=== PATIENT | female | born 1965 | race Caucasian/White ===

== ENCOUNTER 2017-08-15 06:24 | Inpatient (IN) | payer MEDICARE, MEDICAID ==
[2017-07-28 10:33] LABS: ABSOLUTE BASOPHILS 0.1 thou/uL (0.0-0.2); ABSOLUTE EOSINOPHILS 0.4 thou/uL (0.0-0.7); ABSOLUTE LYMPHOCYTES 1.6 thou/uL (0.8-5.3); ABSOLUTE MONOCYTES 0.6 thou/uL (0.0-1.2); ABSOLUTE NEUTROPHILS 5.3 thou/uL (1.6-8.1); BASOPHILS 1.2 %; EOSINOPHILS 4.7 %; HEMATOCRIT 37.7 % (37.0-47.0); HEMOGLOBIN 12.3 gm/dL (12.0-15.0); LYMPHOCYTES 19.7 %; MCH 28.2 pg (26.0-34.0); MCHC 32.7 g/dL (28.0-37.0); MCV 86.2 fL (80.0-100.0); MONOCYTES 7.5 %; MPV 7.8 fl. (7.2-11.1); NUCLEATED RBCS 0 /100WBC; PLATELET COUNT* 268 thou/uL (150-400); POLYS 66.9 %; RBC 4.38 mil/uL (4.20-5.00); RDW-CV 14.9 % (10.5-14.5); WBC 7.9 thou/uL (4.0-11.0)
[2017-07-28 10:47] LABS: APTT 28.9 Seconds (25.0-31.3); PROTIME 9.7 Seconds (9.20-11.50)
[2017-07-28 10:52] LABS: ALBUMIN 3.4 g/dL (3.4-5.0); CREATININE 0.9 mg/dL (0.6-1.3); POTASSIUM 4.5 mmol/L (3.5-5.1); TOTAL BILIRUBIN 0.3 mg/dL (<0.1-1.0); TOTAL PROTEIN 7.4 g/dL (6.4-8.2)
[2017-07-28 11:30] LABS: ESR (SEDRATE) 26 mm/hr (0-30)
--- NOTE | 2017-07-28 11:30 | EKG ---
[place] [address] ELECTROCARDIOGRAM REPORT Name: TRACYFRANK Room: PRE IN [facility].#: [id number] Admission: Attend Phys: Brittany Woods Discharge: Date of : 61 Report #: [id number] THIS REPORT FOR: //name// [facility] Test Date: 2017-07-28 Test Time: 09:44:29 Pat Name: FRANK MOLINA Department: Room: Gender: F Proof Sorter: : 1965 Requested By: Luis Granados Order Number: [id number] Reading MD: Gibran Alcaraz Measurements Intervals [place] Rate: 80 P: 72 [place]: 145 QRS: 80 QRSD: 93 T: 58 QT: 383 QTc: 442 Interpretive Statements Sinus rhythm Right atrial enlargement Compared to ECG 02/05/2016 09:02:48 Atrial abnormality now present Electronically Signed On 07-28-2017 11:29:54 DOUGH MIXER by Gibran Alcaraz [email or web address] <ELECTRONICALLY SIGNED> By: Gibran Alcaraz MD, [facility] 07/28/17 1129 0944 0944 Gibran Alcaraz MD, FACC /EPI
[~2017-08-15] VITALS: Ht 152.4 cm; Wt 66.7 kg
[~2017-08-15 06:24] MED LIST: ABILIFY 2 MG2 M1 PO; ABILIFY20 MG PO; ACCUNEB SO1.25 MG/1; ADVAIR 500-501 EACH IH; ALAVERT10 MG PO; ALBUTEROL NEB; ALBUTEROL2.5 MG/0.5 IH; ALBUTEROL2.5 MG/31 IH; ASPIRIN325 PO; ATROVENT15 ML NS; AUGMENTIN 875-1 EACH PO; BENTYL20 MG PO; BUSPIRONE HCL10 MG PO; CEFTIN500 MG PO; CELEBREX50 MG; CLARITIN10 M3 PO; CLEOCIN HCL150 MG PO; COLACE100 MG PO; COZAAR 50 MG TA50 M2 PO; DARVOCET-N 1001 EACH PO; ESTRACE0.5 MG PO; FLEXERIL PO; FLONASE 0.05%50 MCG NASAL; FOLIC ACID 40400 MC1 PO; HYDROXYZINE HCL25 M1 PO; IRON325; LEXAPRO 10 MG T10 M1 PO; LEXAPRO PO; MEDROLDOSEPACK PO; MIRALAX255 GM PO; MS CONTIN 30 MG30 M1 PO; NAPROSYN500 MG PO; NEXIUM; NEXIUM20 M1 PO; NORCO 5-325 TA1 EACH PO; NUCYNTA ER150 MG PO; OXYCODONE HCL 55 MG PO; OXYCONTIN10 M1 PO; PAMELOR25 MG PO; PERCOCET 5-3251 EACH PO; PERCOCET PO; PREDNISONE 10 M10 MG PO; PRINIVIL5 MG PO; PROVENTIL IH; PROZAC20 MG PO; SAVELLA50 MG PO; SINGULAIR 10 MG10 M1 PO; SPIRIVA18 MCG INH; SPRIVA INH; SYNTHROID75 MCG PO; TOPAMAX50 MG; VENTOLIN HFA 1818 GM INH; VITAMIN D-32000 UNIT PO; XANAX XR1 MG PO; XARELTO10 MG PO; nasocort NASAL
[2017-08-15 09:02] VITALS: BP 108/59
[2017-08-15 12:19] LABS: PROTIME 9.7 Seconds (9.20-11.50)
--- NOTE | 2017-08-15 12:22 | NUR ---
ORDER RECEIVED FOR "OT EVALUATION AND TREATMENT". PLAN TO DEFER TO PHYSICAL THERAPY AT THIS TIME.
[2017-08-15 17:40] VITALS: BP 106/44
--- NOTE | 2017-08-15 17:54 | NUR ---
PT TRANSFERRED TO ROOM 110. VSS. PT ON 2L PER NC. IV SALINE LOCKED AT THIS TIME-PAGE SENT TO SURGEON TO CLARIFY ORDER FOR IVF RATE AND POST SURGICAL ANTIBIOTIC. PT REPORTS FEELING TO RIGHT LE. 2+ PEDAL PULSE BILATERALLY. FOOT PUMPS IN PLACE. ASSESSMENT COMPLETED CHARTED. CONTINUOUS PULSE OX IN PLACE. PT ORIENTED TO ROOM AND CALL LIGHT. CALL LIGHT IS WITHIN REACH. WILL CONTINUE TO [facility].
[2017-08-15 20:10] VITALS: BP 136/63
[2017-08-15 23:18] VITALS: BP 128/60
[2017-08-16 03:24] VITALS: BP 119/60
[2017-08-16 04:45] LABS: CALCIUM 8.4 mg/dL (8.5-10.1); MAGNESIUM 1.5 mg/dL (1.8-2.4); POTASSIUM 4.1 mmol/L (3.5-5.1)
[2017-08-16 04:48] LABS: PROTIME 9.7 Seconds (9.20-11.50)
[2017-08-16 04:51] LABS: HEMATOCRIT 29.7 % (37.0-47.0); HEMOGLOBIN 9.7 gm/dL (12.0-15.0); MCH 27.9 pg (26.0-34.0); MCHC 32.8 g/dL (28.0-37.0); MCV 85.1 fL (80.0-100.0); RBC 3.49 mil/uL (4.20-5.00); RDW-CV 14.9 % (10.5-14.5); WBC 19.9 thou/uL (4.0-11.0)
--- NOTE | 2017-08-16 04:59 | NUR ---
PATIENT HAS REMAINED ALERT AND ORIENTED X 4 THROUGHOUT THE SHIFT AND RESTING AT INTERVALS BUT NOT SLEEPING TONIGHT. QUESTION STEROIDS AND BREATHING TREATMENT CONTRIBUTING TO INSOMNIA. MEDICATED USING BOT ORAL AND IV PAIN MEDICATIONS. UP WITH WALKER X 1 WELL FOR LEG CRAMPS. IVF'S AND ANTIBIOTICS PER ORDERS. DRESSING RIGHT KNEE CLEAN AND DRY. NO NAUSEA. GOOD ORAL INTAKE AND URINE OUTPUT. STOREY TO BE DISCONTINUED RADHA AM. VITAL SIGNS STABLE WITH O2 AT 2L/MIN AND CONTINUOUS CAPNOGRAPHY OVERNIGHT. PATIENT WANTING TO GO HOME TODAY. CONTNUE TO MONITOR.
[2017-08-16 08:00] VITALS: BP 108/50
[2017-08-16] MEDS ORDERED: ELIQUIS2.5 MG PO (09:14)
[2017-08-16] MEDS ORDERED: LEVAQUIN 500 M500 M2 PO (09:14)
[2017-08-16] MEDS ORDERED: LIDOPATCH1 EACH TOP (09:14)
[2017-08-16] MEDS ORDERED: PREDNISONE 20 M20 MG PO (09:14)
[2017-08-16] MEDS ORDERED: DUONEB 2.5-0.5 M3 ML INH (09:14)
[2017-08-16 11:29] LABS: POTASSIUM 3.9 mmol/L (3.5-5.1)
--- NOTE | 2017-08-16 13:07 | NUR ---
I have reviewed the documentation by MAURICIO PETE from 08/16/17 to 08/16/17 and I concur with it. NARINDER GRESHAM
[2017-08-16 13:46] VITALS: BP 119/60
--- NOTE | 2017-08-16 13:51 | NUR ---
PT.TO BE DISCHARGED TODAY TO HOME. SHE WANTS TO DO OUTPT P.T.AT [facility] [place] AT [address] CALLED [phone] AND FAXED FACE SHEET,ORTHOPEDIC ORDERS AND OP REPORT TO HER AT [phone]. THEY WILL CALL HER FOR AN APPT. [phone]. COPAY IS $1.72. INFORMED PT. SHE LIVES WITH HER AND HE WILL BE WITH HER AT HOME. HE CAN DRIVE HER TO OUTPT.THERAPY. SHE HAS A WALKER AT HOME. PT.SAID SHE IS NORMALLY INDEPENDENT AT HOME WITH ALL THINGS.
[2017-08-16 14:26] VITALS: BP 119/60
[2017-08-16] MEDS ORDERED: OXYCODONE HCL 55 MG PO (14:30)
--- NOTE | 2017-08-16 14:34 | NUR ---
I have reviewed the documentation by MAURICIO PETE from 08/16/17 to 08/16/17 and I concur with it. NARINDER GRESHAM
[2017-08-16 16:40] VITALS: BP 119/60
--- NOTE | 2017-08-16 16:55 | NUR ---
PATIENT LEFT UNIT AT 1630. ALERT AND ORIENTED X4. UP WITH STAND BY ASSIST WITH WALKER AND GAIT BELT. IV DC'D. PAIN BEING MANAGED WITH PO PAIN MEDICATION. DENIES NAUSEA. ALL PERSONAL ITEMS LEFT WITH PATIENT. DISCHARGE INSTRUCTIONS, PRESCRIPTIONS, AND NEW MEDICATION INFORMATION SENT WITH PATIENT. VSS ON ROOM AIR. HOURLY ROUNDS HAVE BEEN MAINTAINED THROUGHOUT SHIFT. LEFT WITH UNRELATED ADULT VIA CAR.
[2017-08-16 18:07] LABS: GLYCOHEMOGLOBIN (HGB A1C) 5.1 % (4.8-5.6)
[2017-08-17] MEDS ORDERED: SPIRIVA (05:17)
[2017-08-17] MEDS ORDERED: OMEPRAZOLE40 MG (05:17)
--- NOTE | 2017-08-17 11:25 | S ---
[place] [address] SURGICAL PATH RPT PROCEDURE Name: JOY PIMENTEL Room: [address] IN M.R.#: [id number] Admission: 08/15/17 Date of : 61 Discharge: 08/16/17 Report #: [id number] Path Case #: [id number] PATHOLOGY REPORT COLLECTION DATE: 08/15/2017 RECEIVED DATE: 08/15/2017 SUBMITTING PHYS: Dr. Luis Granados OTHER PHYS: Dr. Yonathan Elizondo SPECIMEN(S) RECEIVED: Vaishnavi.R knee bone and tissue * * * * * * * * * * * * FINAL DIAGNOSIS: Right knee bone and tissue, patellofemoral arthroplasty: - Benign fibrofatty tissue and benign bone and cartilage with degenerative changes. (ESTEFANIA:dagmar; 08/17/2017) PATHOLOGIST: Markos Valero M.D. REPORT ELECTRONICALLY SIGNED BY: Markos Valero M.D. DATE/TIME: 08/17/2017 11:24 * * * * * * * * * * * * GROSS PATHOLOGY: The specimen is received in formalin, labeled "Joy Pimentel right knee bone and tissue". Received is a segment of pale yellow-herman bone grossly resembling a patellar fragment with scant attached soft tissue measuring 3.7 x 3.3 x 0.7 cm in greatest dimensions. The specimen displays an articular surface that is smooth and pale herman-brown in appearance, with no gross evidence of eburnation. Car Wrecker bone and soft tissue are submitted in cassette A1, following decalcification. (DAC; 08/16/2017) CLINICAL HISTORY: Right knee degenerative joint disease INITIAL CPT CODE(S): A; 28029, 74674 Professional services performed [place] [facility] [place] [address] Technical services performed by [facility] at [address] [place] [address] SURGICAL PATH RPT PROCEDURE Name: JOY PIMENTEL [employer] Room: [address] IN ..#: [id number] Admission: 08/15/17 Date of : 61 Discharge: 08/16/17 Report #: [id number] Path Case #: [id number] [place] [address]. [facility] [address] [place] [address] PHONE: [phone] DIRECTOR: Sergei Arteaga M.D. * * * END OF REPORT * * *
--- NOTE | 2017-10-12 20:21 | OP ---
[address] [address] OPERATIVE REPORT Name: FRANK MOLINA Room: [address] IN .#: [id number] Admission: 08/15/17 Attend Phys: Brittany Woods Discharge: 08/16/17 Date of : 61 Report #: [id number] THIS REPORT FOR: //name// CC: Luis Deutsch DATE OF SERVICE: 08/15/2017 PREOPERATIVE DIAGNOSIS: Patellofemoral arthritis, right knee. POSTOPERATIVE DIAGNOSIS: Patellofemoral arthritis, right knee. PROCEDURE: Right knee patellofemoral arthroplasty. SURGEON: Luis Granados DO [employer]OR[employer] SUPERVISOR: Joseph Finley DO ESTIMATED BLOOD LOSS: 50 mL. TOURNIQUET TIME: Approximately 40 minutes. ANTIBIOTICS: Ancef 1 gram IV preoperatively. COMPLICATIONS: None. DRAINS: None. SPECIMEN REMOVED: None. ANESTHESIA: Spinal with regional block. ORTHOPEDIC IMPLANTS: Loree patellofemoral arthroplasty system. 1. Size small trochlear component. 2. Size 29 three peg patella. 3. One bag of Palacos bone cement plain. CONDITION OF THE PATIENT: Stable to PACU. INDICATIONS: The patient is a pleasant 52-year-old female seen in my clinic regarding for quite some time. She unfortunately failed conservative treatment including anti-inflammatory medications, steroid injections and activity modification. MRI and x-rays were consistent with mainly patellofemoral arthralgia. This pain was interfering with activities of daily living and quality of life. I discussed potential benefit of [address] [place] [address] OPERATIVE REPORT Name: FRANK MOLINA BRIAN Room: [address] IN M.R.#: [id number] Admission: 08/15/17 Attend Phys: Brittany Woods Discharge: 08/16/17 Date of : 61 Report #: [id number] patellofemoral arthroplasty versus total knee arthroplasty based on intraoperative findings. I discussed procedure, risks, benefits, complications, indications in detail with her. Risks discussed include but not limited to infection, neurovascular injury, continued or worsened pain, continued or worsening arthritic changes, arthrofibrosis, hardware failure, fracture, DVT, PE, need for further surgery and anesthesia complications. She did express understanding and wished to proceed with surgery. DESCRIPTION OF PROCEDURE: After consent was obtained, the patient was taken to the operative suite, placed in supine position on operating table after being given the benefit of spinal anesthesia. A well-padded tourniquet placed on the right upper thigh. Right leg was sterilely prepped and draped in the usual fashion. Preop timeout was obtained to confirm the correct patient, procedure and operative site. Surgery began with elevation of the tourniquet to 300 mmHg, was inflated for approximately 40 minutes throughout the procedure. A standard anterior knee midline incision was made. Sharp dissection was taken down to the level of the capsule. A new knife was used and a medial parapatellar arthrotomy was performed. A normal appearing joint effusion was encountered. Care was taken not to damage the articular cartilage and/or the menisci. At this time, the patella was able to be easily everted and the cartilage was thoroughly inspected. She had no significant degenerative joint disease of the medial or lateral compartments. Menisci were intact. ACL and PCL were intact. She did have grade 4 changes of the trochlea and grade 3 changes of the patella. At this time, we elected to proceed with a patellofemoral arthroplasty. The opening reamer was utilized at appropriate position in the trochlea. We then placed our guide for anterior femoral cut utilizing the bone. This was pinned in place and the anterior cut was then made. We then measured her to be a size 1/small patellofemoral component. The reaming mill was then pinned in place at appropriate position. The bur was then used to mill out the trochlea for the implant carefully. The guide was then removed. We then drilled through the 3 holes for the trochlear component. The size 1 trial component was then impacted into place. The patella was then everted. Posterior patellar cut was made using freehand technique. This measured size 29. Three peg holes were drilled, size 29 button was placed. Knee was taken through a range of motion. The patella did track well. There was no significant clunking, dislocation or subluxation noted. The trial components were then removed. The knee was thoroughly irrigated with pulsatile lavage and dried with a clean lap sponge. Cement was mixed and final components were opened. Cement was placed on the exposed bone as well as final components. The trochanteric component was then impacted in place and the patellar component was clamped until the cement hardened. Once the cement hardened, knee was again taken through final range of motion. The patella tracked well without any significant clunking. The wound was again thoroughly irrigated. Tourniquet was let to deflate. Hemostasis was achieved with electrocautery and direct pressure. [place] [address] OPERATIVE REPORT Name: FRANK MOLINA Room: [address] IN [facility]#: [id number] Admission: 08/15/17 Attend Phys: Brittany Woods Discharge: 08/16/17 Date of : 61 Report #: [id number] The capsular tissue was then closed with #1 Vicryl in a [id number] fashion. PRP was injected into the capsule. Subcutaneous tissues closed with 2-0 Vicryl in an inverted interrupted fashion followed by running Monocryl stitch on the skin. This was covered with Dermabond, which was allowed to dry, Mepilex silver dressing, 4 x 4s, ABD pad, soft roll and Jose J bandage. She did tolerate the procedure well without complications. She was taken to recovery in stable condition. All needle and sponge counts correct x 2 at the end of the procedure. <ELECTRONICALLY SIGNED> By: Luis Granados DO 10/12/172020 1512 1615Davibrittany Granados DO /nt
== END 2017-08-16 16:30 | disposition home or self-care (01) | DRG 516 ==
LOC: M.PRE 06:24 → M.ORTHSURG 08:11 → M.TBA 08:11 → M.PRE 08:31 → M.ORTHSURG 17:52
PROVIDERS: Internal Medicine; Orthopaedic Surgery; ADMIT Internal Medicine
PROC: 0SUT09Z Supplement Right Knee Joint, Femoral Surface with Liner, Open Approach (ICD-10-PCS; principal; 2017-08-15)
PROC: 0SUC09C Supplement Right Knee Joint with Liner, Patellar Surface, Open Approach (ICD-10-PCS; principal; 2017-08-15)
PROC: 3E0T3BZ Introduction of Anesthetic Agent into Peripheral Nerves and Plexi, Percutaneous Approach (ICD-10-PCS; 2017-08-15)
DX: M17.11 Unilateral primary osteoarthritis, right knee (principal); J44.1 Chronic obstructive pulmonary disease with (acute) exacerbation; E87.1 Hypo-osmolality and hyponatremia; K21.9 Gastro-esophageal reflux disease without esophagitis; F17.210 Nicotine dependence, cigarettes, uncomplicated; F32.9 Major depressive disorder, single episode, unspecified; E03.9 Hypothyroidism, unspecified; I10 Essential (primary) hypertension; Z28.21 Immunization not carried out because of patient refusal; Z88.1 Allergy status to other antibiotic agents; Z88.8 Allergy status to other drugs, medicaments and biological substances; Z90.710 Acquired absence of both cervix and uterus

== ENCOUNTER 2017-08-17 05:06 | Inpatient (IN) | payer MEDICARE, MEDICAID ==
[~2017-08-17] VITALS: Ht 152.4 cm; Wt 71.2 kg
[~2017-08-17 05:06] MED LIST changes: +DUONEB 2.5-0.5 M3 ML INH; +ELIQUIS2.5 MG PO; +LEVAQUIN 500 M500 M2 PO; +LIDOPATCH1 EACH TOP; +PREDNISONE 20 M20 MG PO
[2017-08-17 05:07] VITALS: BP 137/63
[2017-08-17] MEDS ORDERED: OMEPRAZOLE40 MG (05:17)
[2017-08-17] MEDS ORDERED: SPIRIVA (05:17)
[2017-08-17 06:14] LABS: HEMATOCRIT 28.1 % (37.0-47.0); HEMOGLOBIN 9.3 gm/dL (12.0-15.0); MCH 28.1 pg (26.0-34.0); MCHC 33.2 g/dL (28.0-37.0); MCV 84.7 fL (80.0-100.0); MPV 7.4 fl. (7.2-11.1); NUCLEATED RBCS 0 /100WBC; PLATELET COUNT* 201 thou/uL (150-400); RBC 3.31 mil/uL (4.20-5.00); RDW-CV 15.3 % (10.5-14.5)
[2017-08-17 06:24] LABS: CALCIUM 8.2 mg/dL (8.5-10.1); CREATININE 0.8 mg/dL (0.6-1.3); POTASSIUM 4.1 mmol/L (3.5-5.1)
[2017-08-17 06:25] LABS: PROTIME 9.8 Seconds (9.20-11.50)
[2017-08-17 06:36] LABS: MAGNESIUM 1.5 mg/dL (1.8-2.4); TOTAL BILIRUBIN 0.4 mg/dL (<0.1-1.0); TOTAL PROTEIN 6.2 g/dL (6.4-8.2); TROPONIN-I LEVEL 0.08 ng/mL (<0.06)
[2017-08-17 06:38] LABS: ABSOLUTE LYMPHOCYTES 0.8 thou/uL (0.8-5.3); ABSOLUTE MONOCYTES 0.8 thou/uL (0.0-1.2); ABSOLUTE NEUTROPHILS 19.3 thou/uL (1.6-8.1); ANISOCYTOSIS 1+; PLATELET ESTIMATE ADEQUATE; POIKILOCYTOSIS 1+
[2017-08-17 06:40] VITALS: BP 114/54
[2017-08-17 06:45] VITALS: BP 126/72
[2017-08-17 15:04] LABS: POTASSIUM 4.2 mmol/L (3.5-5.1)
[2017-08-17 15:20] VITALS: BP 129/62
[2017-08-17 16:00] VITALS: BP 114/44
--- NOTE | 2017-08-17 18:05 | 2DMMODE ---
[place] [address] 2 D/M-MODE ECHOCARDIOGRAM Name: FRANK MOLINA Room: [place] [address] ADM IN Deann#: [id number] Admission: 08/17/17 Attend Phys: Cordell Ko, Discharge: Date of : 61 Date of Service: 08/17/17 1805 Report #: [id number] THIS REPORT FOR: //name// APPROVED REPORT Study performed: 08/17/2017 09:57:32 EXAM: Comprehensive 2D, Doppler, and color-flow Echocardiogram Patient Location: In-Patient Room #: 101 Status: routine BSA: 1.68 HR: 95 bpm BP: 126/72 mmHg Rhythm: NSR Other Information Study Quality: Good Indications COPD Elevated Troponin Post-op pain, hypoxia 2D Dimensions LVEF(%): 71.47 (>50%) IVSd: 10.62 (7-11mm) LVOT Diam: 20.01 (18-24mm) LVDd: 39.48 mm PWd: 9.79 (7-11mm) Ascending Ao: 33.06 (22-36mm) LVDs: 23.62 (25-40mm) Aortic Root: 27.14 mm Forbes's LVEF: 71.47 % Volumes Left Atrial Volume (Systole) LA ESV Index: 34.40 mL/m2 Aortic Valve AoV Peak Helder.: 1.95 m/s AO Peak Gr.: 15.17 mmHg LVOT Max P.89 mmHg AO Mean Gr.: 9.32 mmHg LVOT Mean P.71 mmHg LVOT Max V: 1.49 m/s AO V2 VTI: 40.72 cm LVOT Mean V: 1.00 m/s NICOLE (VTI): 2.48 cm2 LVOT V1 VTI: 32.15 [place] [address] 2 D/M-MODE ECHOCARDIOGRAM Name: FRANK MOLINA [facility] Room: [address] IN .R.#: [id number] Admission: 08/17/17 Attend Phys: Cordell Ko, Discharge: Date of : 61 Date of Service: 08/17/17 1805 Report #: [id number] Mitral Valve E/A Ratio: 1.00 MV Decel. Time: 164.37 ms MV E Max Helder.: 1.33 m/s MV PHT: 47.67 ms MVA (PHT): 4.62 cm2 TDI E/Lateral E': 8.31 E/Medial E': 8.31 Medial E' Helder.: 0.16 m/s Lateral E' Helder.: 0.16 m/s Pulmonary Valve PV Peak Helder.: 1.41 m/s PV Peak Gr.: 7.94 mmHg Tricuspid Valve TR Peak Gr.: 33.72 mmHg RVSP: 38.00 mmHg Left Ventricle The left ventricle is normal size. There is normal LV segmental wall motion. There is normal left ventricular wall thickness. Left ventricular systolic function is normal. The left ventricular ejection fraction is within the normal range. LVEF is 60-65%. The left ventricular diastolic function is normal. Right Ventricle The right ventricle is normal size. The right ventricular systolic function is normal. Atria The left atrium size is normal. The right atrium size is normal. Aortic Valve The aortic valve is normal in structure. No aortic regurgitation is present. There is no aortic valvular stenosis. Mitral Valve The mitral valve is normal in structure. There is no mitral valve regurgitation noted. No evidence of mitral valve stenosis. Tricuspid Valve The tricuspid valve is normal in structure. Mild tricuspid regurgitation. The RVSP is 35-40 mmHg[place] [address] 2 D/M-MODE ECHOCARDIOGRAM Name: FRANK MOLINA [facility] Room: [address] IN ..#: [id number] Admission: 08/17/17 Attend Phys: Cordell Ko, Discharge: Date of : 61 Date of Service: 08/17/17 1805 Report #: [id number] The pulmonary valve is normal in structure. Mild pulmonic regurgitation. Great Vessels The aortic root is normal in size. IVC is normal in size and collapses with >50% inspiration Pericardium There is no pericardial effusion. <Conclusion> The left ventricle is normal size. There is normal left ventricular wall thickness. Left ventricular systolic function is normal. The left ventricular ejection fraction is within the normal range. LVEF is 60-65%. The left ventricular diastolic function is normal. The right ventricle is normal size. The left atrium size is normal. The aortic valve is normal in structure. The mitral valve is normal in structure. The tricuspid valve is normal in structure. Mild tricuspid regurgitation. The RVSP is 35-40 mmHg. IVC is normal in size and collapses with >50% inspiration There is no pericardial effusion. There is normal LV segmental wall motion. <ELECTRONICALLY SIGNED> By: Ryan Olivia MD, FACC 08/17/171804 04 04 Ryan Olivia MD, FACC /INF
[2017-08-17 20:00] VITALS: BP 106/47
[2017-08-18] VITALS: BP 114/48
[2017-08-18 04:00] VITALS: BP 122/48
[2017-08-18 07:30] VITALS: BP 115/47
[2017-08-18 10:05] LABS: HEMATOCRIT 28.1 % (37.0-47.0); HEMOGLOBIN 9.2 gm/dL (12.0-15.0); MCH 28.3 pg (26.0-34.0); MCHC 32.8 g/dL (28.0-37.0); MCV 86.2 fL (80.0-100.0); MPV 7.8 fl. (7.2-11.1); RBC 3.26 mil/uL (4.20-5.00); RDW-CV 15.2 % (10.5-14.5); WBC 16.9 thou/uL (4.0-11.0)
[2017-08-18 10:12] LABS: CALCIUM 8.1 mg/dL (8.5-10.1); CREATININE 0.8 mg/dL (0.6-1.3); POTASSIUM 4.4 mmol/L (3.5-5.1)
[2017-08-18 11:34] VITALS: BP 118/57
--- NOTE | 2017-08-18 12:39 | EKG ---
[place] [address] ELECTROCARDIOGRAM REPORT Name: TRACYFRANK BRIAN Room: [place] [address] ADM IN [facility].#: [id number] Admission: 08/17/17 Attend Phys: Cordell Ko MD Discharge: Date of : 61 Report #: [id number] THIS REPORT FOR: //name// [facility] ED Test Date: 2017-08-17 Test Time: 06:03:15 Pat Name: FRANK MOLINA Department: Room: [facility] Gender: F System Dispatcher: DEE Brush : 1965 Requested By: Juanito Perez Order Number: [id number] MD: Francisco J Daniels Measurements Intervals [place] Rate: 88 P: 58 TN: 158 QRS: 61 QRSD: 92 T: 26 QT: 358 QTc: 434 Interpretive Statements Sinus rhythm Probable left atrial enlargement Baseline wander in lead(s) I,aVR Compared to ECG 07/28/2017 09:44:29 No significant changes Electronically Signed On 08-18-2017 12:39:25 MENTAL HEALTH SOCIAL WORKER by Francisco J Daniesl [email or web address] <ELECTRONICALLY SIGNED> By: Francisco J Daniels MD, FACC 08/18/17 1239 0603 0603 Francisco J Daniels MD, FAC /EPI
[2017-08-18 15:55] VITALS: BP 138/49
[2017-08-18 20:35] VITALS: BP 123/59
[2017-08-19 08:15] VITALS: BP 123/59
[2017-08-19] MEDS ORDERED: AZITHROMYCIN 2250 MG PO (08:51)
[2017-08-19] MEDS ORDERED: CEFDINIR300 MG PO (08:51)
[2017-08-19 12:05] VITALS: BP 123/59
[2017-08-19 12:06] VITALS: BP 123/59
[2017-08-19 15:53] VITALS: BP 123/59
[2017-08-20] MEDS ORDERED: NAPROSYN500 MG PO (22:45)
[2017-08-20] MEDS ORDERED: MORPHINE SULFAT15 M3 PO (22:46)
== END 2017-08-19 16:30 | disposition home health service (06) | DRG 177 ==
LOC: M.ERS 05:06 → M.ORTHSURG 06:04 → M.TBA-ER 06:04 → M.ORTHSURG 06:49 → M.2W 12:32 → M.ORTHSURG 08-18 19:59
PROVIDERS: Family Medicine; Internal Medicine; ADMIT Internal Medicine
PROC: B24BZZ4 Ultrasonography of Heart with Aorta, Transesophageal (ICD-10-PCS; principal; 2017-08-17)
DX: J15.6 Pneumonia due to other Gram-negative bacteria (principal); J96.00 Acute respiratory failure, unspecified whether with hypoxia or hypercapnia; J44.1 Chronic obstructive pulmonary disease with (acute) exacerbation; J44.0 Chronic obstructive pulmonary disease with (acute) lower respiratory infection; E87.1 Hypo-osmolality and hyponatremia; G89.18 Other acute postprocedural pain; I10 Essential (primary) hypertension; K58.9 Irritable bowel syndrome, unspecified; M19.90 Unspecified osteoarthritis, unspecified site; M79.7 Fibromyalgia; K21.9 Gastro-esophageal reflux disease without esophagitis; D64.9 Anemia, unspecified; F17.210 Nicotine dependence, cigarettes, uncomplicated; Z96.651 Presence of right artificial knee joint; D72.829 Elevated white blood cell count, unspecified; T38.0X5A Adverse effect of glucocorticoids and synthetic analogues, initial encounter; Y92.89 Other specified places as the place of occurrence of the external cause; Z87.81 Personal history of (healed) traumatic fracture; Z90.710 Acquired absence of both cervix and uterus; Z79.51 Long term (current) use of inhaled steroids; Z79.899 Other long term (current) drug therapy; Z88.1 Allergy status to other antibiotic agents; Z88.2 Allergy status to sulfonamides; Z88.8 Allergy status to other drugs, medicaments and biological substances

== ENCOUNTER 2017-08-20 13:02 | Inpatient (IN) | payer MEDICARE, MEDICAID ==
[~2017-08-20] VITALS: Ht 152.4 cm; Wt 71.2 kg
[~2017-08-20 13:02] MED LIST changes: +AZITHROMYCIN 2250 MG PO; +CEFDINIR300 MG PO; +OMEPRAZOLE40 MG; +SPIRIVA
[2017-08-20 13:07] VITALS: BP 150/62
[2017-08-20 13:50] LABS: HEMATOCRIT 28.4 % (37.0-47.0); HEMOGLOBIN 9.4 gm/dL (12.0-15.0); MCH 28.2 pg (26.0-34.0); MCHC 33.2 g/dL (28.0-37.0); MCV 84.9 fL (80.0-100.0); MPV 7.2 fl. (7.2-11.1); NUCLEATED RBCS 0 /100WBC; PLATELET COUNT* 240 thou/uL (150-400); RBC 3.34 mil/uL (4.20-5.00); RDW-CV 15.4 % (10.5-14.5); WBC 12.2 thou/uL (4.0-11.0)
[2017-08-20 14:14] LABS: ABSOLUTE LYMPHOCYTES 2.1 thou/uL (0.8-5.3); ABSOLUTE MONOCYTES 0.7 thou/uL (0.0-1.2); ABSOLUTE NEUTROPHILS 9.4 thou/uL (1.6-8.1); ANISOCYTOSIS Occasional; HYPOCHROMASIA Occasional; PLATELET ESTIMATE ADEQUATE; POLYCHROMASIA Occasional
[2017-08-20 14:16] LABS: ALBUMIN 2.8 g/dL (3.4-5.0); ALKALINE PHOSPHATASE 84 U/L (46-116); ANION GAP 5 mmol/L (7-16); BUN 16 mg/dL (7-18); CALCIUM 8.5 mg/dL (8.5-10.1); CHLORIDE 100 mmol/L (98-107); CO2 31 mmol/L (21-32); CREATININE 0.9 mg/dL (0.6-1.3); GLUCOSE 81 mg/dL (70-99); NT-PRO BRAIN NAT PEPTIDE 2887 pg/mL (<300); POTASSIUM 3.2 mmol/L (3.5-5.1); SGOT 23 U/L (15-37); SGPT 22 U/L (30-65); SODIUM 136 mmol/L (136-145); TOTAL BILIRUBIN 0.7 mg/dL (<0.1-1.0); TOTAL PROTEIN 6.2 g/dL (6.4-8.2); TROPONIN-I LEVEL <0.06 ng/mL (<0.06)
[2017-08-20 20:15] VITALS: BP 165/76
[2017-08-20 20:30] VITALS: BP 145/56
[2017-08-20] MEDS ORDERED: NAPROSYN500 MG PO (22:45)
[2017-08-20] MEDS ORDERED: MORPHINE SULFAT15 M3 PO (22:46)
[2017-08-21] VITALS (7 sets, daily range): BP systolic 114–148; BP diastolic 50–65
[2017-08-21 05:14] LABS: HEMATOCRIT 28.4 % (37.0-47.0); HEMOGLOBIN 9.8 gm/dL (12.0-15.0); MCHC 34.6 g/dL (28.0-37.0); MCV 83.9 fL (80.0-100.0); MPV 7.6 fl. (7.2-11.1); RBC 3.39 mil/uL (4.20-5.00); RDW-CV 15.1 % (10.5-14.5); WBC 8.4 thou/uL (4.0-11.0)
[2017-08-21 06:14] LABS: ALBUMIN 2.4 g/dL (3.4-5.0); CALCIUM 7.7 mg/dL (8.5-10.1); MAGNESIUM 1.7 mg/dL (1.8-2.4); POTASSIUM 3.7 mmol/L (3.5-5.1); TOTAL BILIRUBIN 0.6 mg/dL (<0.1-1.0); TOTAL PROTEIN 5.2 g/dL (6.4-8.2)
--- NOTE | 2017-08-21 12:23 | EKG ---
[place] [address] ELECTROCARDIOGRAM REPORT Name: TRACYFRANK BRIAN Room: [address] ADM IN .R.#: [id number] Admission: 08/20/17 Attend Phys: Brittany Woods Discharge: Date of : 61 Report #: [id number] THIS REPORT FOR: //name// [facility] ED Test Date: 2017-08-20 Test Time: 13:07:38 Pat Name: FRANK MOLINA Department: Room: [address] Gender: F Subway Train Operator: [place] : 1965 Requested By: Chari Hsu Order Number: [id number] Arben MD: Francisco J Daniels Measurements Intervals [place] Rate: 88 P: 57 ND: 145 QRS: 62 QRSD: 92 T: 53 QT: 338 QTc: 409 Interpretive Statements Sinus rhythm Biatrial enlargement possible Compared to ECG 08/17/2017 06:03:15 No significant changes Electronically Signed On 08-21-2017 12:22:58 [employer]ERWEAR WELTER by Francisco J Daniels [email or web address] <ELECTRONICALLY SIGNED> By: Francisco J Daniels MD, [facility] 08/21/17 1222 1307 1307 Francisco J Daniels MD, FACC /EPI
[2017-08-21 16:06] LABS: CALCIUM 7.7 mg/dL (8.5-10.1); CREATININE 1.2 mg/dL (0.6-1.3); MAGNESIUM 1.6 mg/dL (1.8-2.4); POTASSIUM 3.9 mmol/L (3.5-5.1)
[2017-08-22 03:51] VITALS: BP 147/60
[2017-08-22 05:24] LABS: HEMATOCRIT 28.4 % (37.0-47.0); HEMOGLOBIN 9.5 gm/dL (12.0-15.0); MCH 28.2 pg (26.0-34.0); MCHC 33.5 g/dL (28.0-37.0); MCV 84.2 fL (80.0-100.0); MPV 7.6 fl. (7.2-11.1); NUCLEATED RBCS 0 /100WBC; PLATELET COUNT* 228 thou/uL (150-400); RBC 3.38 mil/uL (4.20-5.00); RDW-CV 14.8 % (10.5-14.5); WBC 14.5 thou/uL (4.0-11.0)
[2017-08-22 05:44] LABS: ALBUMIN 2.4 g/dL (3.4-5.0); CALCIUM 7.8 mg/dL (8.5-10.1); CREATININE 0.9 mg/dL (0.6-1.3); MAGNESIUM 1.8 mg/dL (1.8-2.4); POTASSIUM 3.8 mmol/L (3.5-5.1); TOTAL BILIRUBIN 0.4 mg/dL (<0.1-1.0)
[2017-08-22 06:12] LABS: ABSOLUTE LYMPHOCYTES 1.2 thou/uL (0.8-5.3); ABSOLUTE NEUTROPHILS 13.3 thou/uL (1.6-8.1)
[2017-08-22 06:13] LABS: OVALOCYTES Occasional; PLATELET ESTIMATE ADEQUATE
[2017-08-22 06:14] LABS: ANISOCYTOSIS 1+; POIKILOCYTOSIS 1+
[2017-08-22 07:50] VITALS: BP 153/75
--- NOTE | 2017-08-22 11:43 | CON ---
[address] [address] CONSULTATION Name: TRACYFRANK BRIAN Room: [address] IN M.R.#: [id number] Admission: 08/20/17 Attend Phys: Brittany Woods Discharge: Date of : 61 Report #: [id number] THIS REPORT FOR: //name// CC: Kevin Deutsch DATE OF SERVICE: 08/21/2017 CONSULT REQUESTED BY: Dr. Soriano. INDICATION FOR CONSULTATION: Hospital-acquired pneumonia. HISTORY OF PRESENT ILLNESS: A 52-year-old female with clinical history consistent with COPD, not previously diagnosed, recent knee surgery, recent admission subsequently with pneumonia, just discharged 2 days ago, now presents again with increasing shortness of breath and cough, has had hemoptysis, has had a fever and some nasal discharge, some chest pain with respiration and coughing. No increase in swelling of lower extremities, no calf pain. REVIEW OF SYSTEMS: Negative except as mentioned above for 12 points. PAST MEDICAL HISTORY: Chronic pain, on narcotics, COPD, recent knee surgery as mentioned above, osteoarthritis. The patient's last available echocardiogram shows a normal left ventricular ejection fraction and a pulmonary artery systolic of 35-40. ALLERGIES: QUESTIONABLE ALLERGY TO TYLENOL, ALSO ALLERGIC TO BACTRIM AND TETRACYCLINE. CURRENT MEDICATIONS: List in [employer] reviewed. HOME MEDICATIONS: List also in [employer] reviewed. PHYSICAL EXAMINATION: GENERAL: Alert, awake and oriented, not in distress. Vitals in the records reviewed. The patient currently is noted to be on room air. THROAT: No erythema. NECK: Does not show raised JVP. CHEST: Breath sounds bilaterally equal, expirations prolonged, significant wheezing bilaterally. HEART: Regular, no murmur. ABDOMEN: Soft and nontender. EXTREMITIES: Lower extremities, no edema, no calf tenderness. CT of chest shows extensive pulmonary infiltrates. No pulmonary emboli detected, although limited study for pulmonary emboli. Comparing chest x-rays, [place] [address] CONSULTATION Name: FRNAK MOLINA BRIAN Room: [address] IN [facility].#: [id number] Admission: 08/20/17 Attend Phys: Brittany Woods Discharge: Date of : 61 Report #: [id number] these infiltrates are new compared with July of this year. Last chest x-ray done on the does not show these infiltrates. ASSESSMENT AND PLAN: 1. Healthcare-associated pneumonia. The patient currently is on Levaquin as well as vancomycin. I agree with current therapy. We will plan to continue Levaquin for at least 1 week. We will review vancomycin daily. For now, I do recommend continuing vancomycin as well. If the patient's condition deteriorates or fails to improve, will have a low threshold of adding Zosyn. 2. Chronic obstructive pulmonary disease exacerbation/bronchospasm. Discussion as above. She is on prednisone. I agree with prednisone. We will give her 2 doses of Solu-Medrol as well. She is on nebulized bronchodilators. 3. Recent knee surgery. Discussion as above. 4. Anticoagulation. Note that the patient currently is on anticoagulation with Eliquis. The reason why she is on Eliquis is not known to me at this time. <ELECTRONICALLY SIGNED> By: Cortez Wells MD 08/22/17 1143 1119 1752Acharlene Wells MD /nt
[2017-08-22 12:02] VITALS: BP 110/96
[2017-08-22 17:12] VITALS: BP 137/54
== END 2017-08-22 18:02 | disposition home health service (06) | DRG 871 ==
LOC: M.ERS 13:02 → M.TBA-ER 16:05 → M.2W 16:05
PROVIDERS: Family Medicine; Internal Medicine Critical Care Medicine; Physician Assistant; ADMIT Internal Medicine
DX: A41.9 Sepsis, unspecified organism (principal); J15.7 Pneumonia due to Mycoplasma pneumoniae; J96.91 Respiratory failure, unspecified with hypoxia; J44.0 Chronic obstructive pulmonary disease with (acute) lower respiratory infection; J44.1 Chronic obstructive pulmonary disease with (acute) exacerbation; Y95 Nosocomial condition; E87.6 Hypokalemia; M17.9 Osteoarthritis of knee, unspecified; Z96.651 Presence of right artificial knee joint; K58.9 Irritable bowel syndrome, unspecified; Z53.21 Procedure and treatment not carried out due to patient leaving prior to being seen by health care provider; I10 Essential (primary) hypertension; K21.9 Gastro-esophageal reflux disease without esophagitis; F17.210 Nicotine dependence, cigarettes, uncomplicated; Z90.710 Acquired absence of both cervix and uterus; Z86.19 Personal history of other infectious and parasitic diseases; Z79.2 Long term (current) use of antibiotics; Z79.899 Other long term (current) drug therapy; Z88.1 Allergy status to other antibiotic agents; Z88.8 Allergy status to other drugs, medicaments and biological substances; Z72.89 Other problems related to lifestyle; Z79.01 Long term (current) use of anticoagulants

== ENCOUNTER 2017-08-23 01:04 | Inpatient (IN) | payer MEDICARE, MEDICAID ==
[~2017-08-23] VITALS: Ht 162.6 cm; Wt 65.1 kg
[~2017-08-23 01:04] MED LIST changes: +MORPHINE SULFAT15 M3 PO
[2017-08-23 01:17] VITALS: BP 109/74
[2017-08-23 01:53] LABS: HEMATOCRIT 27.3 % (37.0-47.0); MCH 27.9 pg (26.0-34.0); MCV 84.6 fL (80.0-100.0); MPV 7.4 fl. (7.2-11.1); NUCLEATED RBCS 0 /100WBC; PLATELET COUNT* 268 thou/uL (150-400); RBC 3.22 mil/uL (4.20-5.00); RDW-CV 14.7 % (10.5-14.5); WBC 25.8 thou/uL (4.0-11.0)
[2017-08-23 01:55] LABS: CALCIUM 7.9 mg/dL (8.5-10.1); CREATININE 0.9 mg/dL (0.6-1.3); POTASSIUM 3.7 mmol/L (3.5-5.1)
[2017-08-23 02:45] VITALS: BP 109/74
[2017-08-23 03:06] LABS: ABSOLUTE NEUTROPHILS 23.7 thou/uL (1.6-8.1); ANISOCYTOSIS 1+; LARGE PLATELETS OCCASIONAL; PLATELET ESTIMATE ADEQUATE
[2017-08-23 03:24] VITALS: BP 125/57
--- NOTE | 2017-08-23 06:25 | NUR ---
PT ADMITTED WITH HYOXIA AND LEUKOCYTOSIS. PT LEFT AMA ON 08/22 WITH PNEUMONIA. PT SAME INTO ER WITH SATS IN THE LOW 80'S ON ROOM AIR. PT IS ON 4L PER NC WITH 96% SAT. PT IS ALERT AND ORIENTED. PT REPORTS PAIN IN RIGHT KNEE FROM POST OP KNEE ARTHROPLASTY 08/15/17 AND PAIN IN LOWER BACK AND HIPS. PT GIVEN ONE TIME ORDER OF DILAUDID AND NEW ORDER OF OXY IR THIS MORNING. PT HAS BEEN AFEBRILE SINCE ADMISSION TO THE FLOOR. PATIENT HAS LOOSE PROD COUGH. PT IS FALL RISK, BED ALARM ON. PT TURNS SELF IN BED. PT IS UP STANDBY ASSIST TO BATHROOM. SEE ASSESSMENT AND VITALS FOR OTHER DETAILS. CALL LIGHT WITHIN REACH, WILL CONTINUE PLAN OF CARE
[2017-08-23 08:00] VITALS: BP 131/40
--- NOTE | 2017-08-23 16:41 | NUR ---
SW met with pt to complete initial assessment, introduce self, and SW role. Pt was sleeping but woke up to say hello to SW. Pt familiar with the hospital and case management due to previous hospital stays not long ago. Pt did not express any needs at this time. SW to continue to follow to assist with safe dc planning. Pt has history with [facility] home care and with [facility] HH services. Pt was on hospice care with [facility].
[2017-08-23 17:19] VITALS: BP 142/47
--- NOTE | 2017-08-23 18:20 | NUR ---
PATIENT HAS BEEN ASLEEP MOST OF THE DAY IN THE CHAIR. VITAL SIGNS STABLE ON 6 LITERS OF OXYGEN, PATIENT SOMETIMES WILL TAKE IT OFF AND CANNULA AND OXYGEN LEVELS DROP QUICKLY. UP WITH STAND BY AND WALKER TO THE RESTROOM. CALL LIGHT IS IN REACH, WILL CONTINUE TO MONITOR.
[2017-08-23 20:00] VITALS: BP 123/55
--- NOTE | 2017-08-24 05:14 | NUR ---
ASSUMED CARE OF PT AT 1900 PT ALERT AND ORIENTED X4 VS AND ASSESSMENT STABLE. PT QUESTIONED ME WHEN I ENTERED ABOUT WHETHER OR NOT SHE HAD RECIEVED HER MEDICATIONS DURING THE DAY. I INFORMED PT ID HAVE TO CHECK BUT I WOULD GO THROUGH THEM WITH HER WHEN I CAME BACK TO TO BRING EVENING MEDS.PT AGREED. RETURNED WITH MEDS AND INFORMED PT OF ALL THE MEDS SHE HAD BEEN GIVEN DURING THE DAY PT SATISFIED. GAVE PT PRN OXYCODONE THEN PT CALLED OUT 30 MINS AFTER AND SAID THEY DIDNT HELP HER PAIN, INFORMED PT I WOULD CALL THE DOCTOR, OBTAINED ORDERS FOR PRN TRAMADOL BROUGHT IT IN WITH [employer] " IT DOESNT WORK I HAVE THOSE AT HOME BUT ILL TRY IT" PT THEN SLEPT UNTIL HER NEBULIZER TX AND CALLED OUT FOR MORE PAIN MEDS GAVE PRN NAPROXEN PT THEN SLEPT UNTIL 0245 AND CALLED OUT FOR SOMETHING FOR SLEEP. I ENTERED PTS ROOM AND PT WAS SLEEPING, ME ENTERING WOKE HER UP I EXPLAINED THAT SHE DIDNT HAVE ANYTHING ORDERED AND SINCE SHE WAS STARTING TO FALL ASLEEP WE SHOULD TRY A WARM BLANKET TURNING OUT THE TV AND THE LIGHTS AND SEE IF THAT HELPED. PT AGREED NO FURTHER COMPLAINTS. WILL CONTINUE PLAN OF CARE.
[2017-08-24 07:50] VITALS: BP 148/64
--- NOTE | 2017-08-24 15:32 | NUR ---
PATIENT ATTEMPTING TO WORK WITH PHYSICAL THERAPY THIS AFTERNOON AND PATIENT DESATTED TO THE 70s ON O2 AT 7L/NC. PATIENT INSTRUCTED TO NOT GET UP OUT OF BED UNLESS WITH STAFF. RESPIRATORY IN ROOM TO GIVE BREATHING TREATMENT, AND RESPIRATORY INCREASED O2 TO 8L/NC HIGH FLOW. PATIENT EDUCATED AND INSTRUCTED ON USE OF INCENTIVE SPIROMETRY. PATIENT VERBALIZED UNDERSTANDING. WILL CONTINUE WITH PLAN OF CARE.
[2017-08-24 16:03] VITALS: BP 133/49
--- NOTE | 2017-08-24 16:13 | NUR ---
SPOKE WITH DR CUEVAS REGARDING LOWER O2 SATS ON 8L/HIGH DELVIS NASAL CANNULA. ORDERS RECEIVED FOR ABGs. WILL CONTINUE WITH PLAN OF CARE.
[2017-08-24 16:46] LABS: PCO2 39.1 mmHg (35.0-45.0); pH 7.437 (7.340-7.450)
[2017-08-24 16:51] LABS: BE 1.5 mmol/L (-2 to +3); HCO3 25.8 mmol/L (22.0-26.0); PO2 51.2 mmHg (75.0-100.0)
--- NOTE | 2017-08-24 17:46 | NUR ---
PATIENT A/O X 4 THIS SHIFT, DROWSY AT TIMES. PATIENT'S O2 NEEDS INCREASED THROUGHOUT THE SHIFT, NOW ON O2 AT 9L/HIGH DELVIS CANNULA. ABGs COMPLETED THIS SHIFT AND RESULTS GIVEN TO DR CUEVAS. PATIENT DOES DESAT WITH ACTIVITY. CONTINUES ON ORAL PAIN MEDS. ATTEMPTED TO WORK WITH PHYSICAL THERAPY BUT DIDN'T WALK THIS SHIFT DUE TO LOW O2 SATS. PATIENT INFORMED OF ALL THE NEW ORDERS AND PLAN OF CARE. HOURLY ROUNDING COMPLETED. CALL LIGHT WITHIN REACH. WILL CONTINUE WITH PLAN OF CARE.
[2017-08-24 20:00] VITALS: BP 136/51
[2017-08-24 22:34] VITALS: BP 135/50
[2017-08-25] VITALS (10 sets, daily range): BP systolic 124–166; BP diastolic 49–85
[2017-08-25 00:57] LABS: ABSOLUTE BASOPHILS 0.1 thou/uL (0.0-0.2); ABSOLUTE LYMPHOCYTES 0.7 thou/uL (0.8-5.3); ABSOLUTE MONOCYTES 0.7 thou/uL (0.0-1.2); ABSOLUTE NEUTROPHILS 19.3 thou/uL (1.6-8.1); BASOPHILS 0.6 %; HEMATOCRIT 26.1 % (37.0-47.0); HEMOGLOBIN 8.5 gm/dL (12.0-15.0); LYMPHOCYTES 3.6 %; MCH 27.7 pg (26.0-34.0); MCHC 32.8 g/dL (28.0-37.0); MCV 84.4 fL (80.0-100.0); MONOCYTES 3.5 %; MPV 7.1 fl. (7.2-11.1); NUCLEATED RBCS 0 /100WBC; PLATELET COUNT* 251 thou/uL (150-400); POLYS 92.3 %; RBC 3.09 mil/uL (4.20-5.00); RDW-CV 14.9 % (10.5-14.5); WBC 20.9 thou/uL (4.0-11.0)
--- NOTE | 2017-08-25 04:46 | NUR ---
PT TRANSFERED TO ICU ROOM 7 AT 0420. PT ON BIPAP 14/8 RATE 12 AT 70% FIO2. PT ANXIOUS. ABG OBTAINED PER RESPIRATORY THERAPY.
--- NOTE | 2017-08-25 04:47 | NUR ---
ASSUMED CARE OF PT AT 1900 PT ALERT AND ORIENTED ON 10L NC SATS DROPING INTO THE 70'S-80'S RT IN WITH PT PLACED ON NRB PT CAME UP TO THE MID 90'S.NOTIFIED DR CUEVAS AND OBTAINED ORDER FOR PRN BIPAP PT HAD PRN PAIN MEDS AT THIS TIME. PTS DAUGHTER BROUGHT FOOD INRIGHT BEFORE MIDNIGHT AND PT REMOVED HER MASK AND BEGAN TO EAT. RT IN WITH PT AND HER O2 SATS DROPPED AGAIN.PLACED PT ON BIPAP AND NOTIFIED DR CUEVAS D. DIMER ORDERED WITH A CTA IF D DIMER IS ELEVATED. STAT D DIMER ELEVATED CTA COMPLETED. CTA SHOWED LUNG WORSENING, SEE REPORT. NOTIFIED DR CUEVAS PT TRANSFERED TO ICU, PULMONARY CONSULT AND CHANGES TO ABX THERAPT, REPORT GIVEN TO GALI. SPOKE TO PTS DAUGHTER TO INFORM HER OF THE CHANGES. WILL CONTINUE PLAN OF CARE.
[2017-08-25 04:52] LABS: BE 1.2 mmol/L (-2 to +3); HCO3 24.9 mmol/L (22.0-26.0); PCO2 36.2 mmHg (35.0-45.0); pH 7.456 (7.340-7.450)
[2017-08-25 04:53] LABS: PO2 58.3 mmHg (75.0-100.0)
--- NOTE | 2017-08-25 09:30 | NUR ---
PT TAKEN OFF BIPAP AND PLACED ON O2@15 L HFNC. SATS DECREASE TO UPPER 70S WHEN PT TALKS. ENCOURAGED PT TO TAKE SMALL BITES AND NOT TALK ON PHONE WHILE EATING. WILL CONTINUE TO MONITOR
--- NOTE | 2017-08-25 10:55 | NUR ---
PT TRANSFERRED TO ICU, ON BIPAP OVERNIGHT. NOW ON 02 PER NASAL CANNULA. PT SAID SHE IS FEELING MUCH BETTER TODAY. PT'S IS ON SERVICE WITH [facility]. SHE SAID HE IS CURRENTLY STAYING AT THEIR DTR'S HOME. SHE STATES THAT [facility] HAS BEEN VERY HELPFUL TO PROVIDE EXTRA ASSISTANCE AND VOLUNTEERS, WHILE SHE HAS BEEN IN AND OUT OF THE HOSPITAL.
[2017-08-25 12:29] LABS: ALBUMIN 2.5 g/dL (3.4-5.0); CREATININE 0.9 mg/dL (0.6-1.3); MAGNESIUM 2.1 mg/dL (1.8-2.4); POTASSIUM 3.6 mmol/L (3.5-5.1); TOTAL BILIRUBIN 0.4 mg/dL (<0.1-1.0); TOTAL PROTEIN 5.9 g/dL (6.4-8.2)
--- NOTE | 2017-08-25 14:07 | NUR ---
PT SATS DECREASE TO UPPERS 70S WITH TALKING OR EATING. PT CONTINUES TO TALK ON CELL PHONE DESPITE BEING INSTRUCTED BY STAFF MULTIPLE TIMES TO CONSERVE ENERGY. PT SATS RECOVER SLOWLY WITH INACTIVITY. PT PLACED BACK ON BIPAP AFTER LUNCH AND ENCOURAGED TO REST
--- NOTE | 2017-08-25 16:00 | NUR ---
PT ON BIPAP FOR APPROX 3 HOURS. PT TOLERATED WELL BUT HAS TO BE ENCOURAGED NOT TO TRY TO TALK ON THE PHONE WHILE ON BIPAP. SATS IN MID 90S WHILE ON BIPAP
--- NOTE | 2017-08-25 18:29 | NUR ---
PT RESTING IN BED THROUGOUT SHIFT. PT REPOSITIONED FREQUENTLY HER O2 SATS WILL TOLERATE. PT SATS DECREASE WITH ACTIVITY OR TALKING. PT TALKING ON PHONE FREQUENTLY AND HAS BEEN ENCOURAGED MULTIPLE TIMES TO NOT TALK ON PHONE. PT TOLERATING PO WELL. VOID PER [facility]. FAMILY AT BS AND UPDATED ON PLAN OF CARE
--- NOTE | 2017-08-25 22:00 | NUR ---
WENT TO TURN PT AND SHE STATED THAT SHE DOESN'T NEED US TO TURN HER. SHE TURNS HERSELF. PT EDUCATED ON WHY SHE NEEDS TO TURN FOR PREVENTION OF PRESSURE ULCERS AND ALSO HELP WITH LUNG CAPACITY.
--- NOTE | 2017-08-25 22:30 | NUR ---
PT C/O HAVING MIDSTERNAL PAIN. PT STATES THAT IT FEELS LIKE PRESSURE. DID EKG AND IT WAS NORMAL. RT DID PUT THE BI-PAP ON 30 MIN PRIOR TO THE PRESSURE STARTING. WILL CON'T TO MONITOR PT AT THIS TIME.
--- NOTE | 2017-08-25 23:30 | NUR ---
PT STATES THAT THE MIDSTERNALPRESSURE IS GONE AT THIS TIME.
[2017-08-26] VITALS (14 sets, daily range): BP systolic 123–166; BP diastolic 49–71
--- NOTE | 2017-08-26 05:08 | NUR ---
MINIMAL PROGRESSION TOWARDS GOALS. ASSESSMENT AND VS OBTAINED, SEE CHARTING. STORE TEAM LEADER ON AND TRACING SR. PT WORE THE BI PAP THROUGH OUT THE NIGHT ON ORDERED SETTINGS. 0400, PT WANTED TO WEAR THE NC. HFNC 15L WAS PLACED. THE REST OFF THE NIGHT WAS UNEVENTFUL.
[2017-08-26 05:18] LABS: HEMATOCRIT 26.9 % (37.0-47.0); HEMOGLOBIN 8.8 gm/dL (12.0-15.0); MCH 27.4 pg (26.0-34.0); MCHC 32.5 g/dL (28.0-37.0); MCV 84.3 fL (80.0-100.0); MPV 7.5 fl. (7.2-11.1); RBC 3.19 mil/uL (4.20-5.00); RDW-CV 15.2 % (10.5-14.5); WBC 21.8 thou/uL (4.0-11.0)
[2017-08-26 05:26] LABS: ALBUMIN 2.4 g/dL (3.4-5.0); CALCIUM 7.9 mg/dL (8.5-10.1); CREATININE 0.8 mg/dL (0.6-1.3); MAGNESIUM 1.9 mg/dL (1.8-2.4); POTASSIUM 4.1 mmol/L (3.5-5.1); TOTAL BILIRUBIN 0.5 mg/dL (<0.1-1.0); TOTAL PROTEIN 5.8 g/dL (6.4-8.2)
--- NOTE | 2017-08-26 07:30 | NUR ---
0730 ASSUMED CARE OF PT. PLEASE SEE DOCUMENTED ASSESSMENT. PT ON 15 L HIFLO NC W/SATS AT 89%. OFF BIPAP SINCE AROUND 0430. ASKING FOR SOME PAIN MEDICATION FOR BREAKTHROUGH PAIN-UNLIKEY D/T RESPIRATORY STATUS. WILL ALERT HIMS. GOALS THIS SHIFT ARE TO: MAINTAIN OXYGENATION SATS AT OR ABOVE 88%, PAIN MANAGEMENT, AND TO WORK W/OT/PT.
--- NOTE | 2017-08-26 07:56 | CON ---
[address] [address] CONSULTATION Name: FRANK MOLINA Room: [address] IN .R.#: [id number] Admission: 08/23/17 Attend Phys: Brittany Woods Discharge: Date of : 61 Report #: [id number] THIS REPORT FOR: //name// CC: Kevin Deutsch DATE OF SERVICE: 08/25/2017 INFECTIOUS DISEASE CONSULTATION ATTENDING PHYSICIAN: Yonathan Deutsch DO REASON FOR EVALUATION: Severe pneumonitis, actually has worsened since admission in spite of aggressive approach and antimicrobial therapy. HISTORY OF PRESENT ILLNESS: Chart reviewed, patient examined. This is a 52-year-old woman with significant medical history given her age including COPD O2 requiring who was admitted now for the third or fourth time in the last few weeks, was admitted on 08/17/2017, at that point had difficulty breathing, was hypoxemic, had a previous right knee surgery within that previous few days prior. She was treated for pneumonitis suggested improvement, was discharged only to have a clinical deterioration. She was then readmitted, medicines have been utilized in spite of that she actually required transition to the Intensive Care Unit, placed on BiPAP. She was not intubated. She is currently on nasal cannula oxygen at 8 liters. She is generally lucid. Denies significant abdominal related discomfort. She notes she has been anorexic, poor p.o. intake and some weight loss. Currently, she is on combination therapy with azithromycin, vancomycin and meropenem. ALLERGIES: LISTED TO TYLENOL, TETRACYCLINE AND BACTRIM. MEDICINES: Include meropenem, methylprednisolone, azithromycin, vancomycin, nortriptyline, montelukast, budesonide, apixaban, fluoxetine, losartan, aripiprazole, pantoprazole, buspirone, levothyroxine, ipratropium and albuterol inhaler. PAST MEDICAL HISTORY: As noted above, hypertension, history of hepatitis C, irritable bowel syndrome, fibromyalgia, hiatal hernia, degenerative joint disease, COPD, reflux, multiple orthopedic injuries requiring surgery. SOCIAL HISTORY: Continues to smoke half pack a day, numbers 40 years. No ethanol. No illicit drug use. FAMILY HISTORY: Noncontributory. REVIEW OF SYSTEMS: [place] [address] CONSULTATION Name: FRANK MOLINA BRIAN Room: [address]#: [id number] Admission: 08/23/17 Attend Phys: Brittany Woods Discharge: Date of : 61 Report #: [id number] PHYSICAL EXAMINATION: GENERAL: She appears chronically ill, undernourished. She is lucid, although she appears very weak/fatigued. VITAL SIGNS: Temperature 97.6, pulse 93, respirations 18, blood pressure 130/59. SKIN: Warm, dry. HEENT: Nasal cannula oxygen in place. NECK: Supple. LUNGS: Scattered coarse breath sounds. HEART: Regular. No appreciated murmur. ABDOMEN: Soft, nontender, mildly distended. There are no peritoneal signs. GENITOURINARY: Deferred. RECTAL: Deferred. LABORATORY DATA: Electrolytes: Sodium 139, potassium 3.6, chloride 105, bicarbonate is 27, anion gap of 7, BUN and creatinine 15 and 0.9, glucose of 200. LFTs unremarkable. Albumin of 2.5, total protein 5.9, estimated GFR of 65. CTA chest PE protocol, septal thickening and ground glass opacities, nothing for embolism, felt to be interstitial pneumonitis, can include a component of edema as well. ABGs on BiPAP earlier pH 7.456, pCO2 of 36.2, pO2 of 58.3. CBC: White count of 20.9 it has actually improved from admission when it was 28.5. Lactic acid was 2.2, repeat was 1.7. Blood cultures are sterile thus far. ASSESSMENT AND PLAN: Pneumonitis, the patient with severely compromised underlying lung function. We will continue broad spectrum empiric therapy at this point, seems unlikely able to produce sputum. Did encourage active coughing, will benefit ____ from some incentive spirometry. Continue the breathing treatments. I think we have to work at the margins, certainly there are very little reserve at this point, they could be a fairly protracted course given her illness and now fourth hospitalization. We will follow with imaging to optimize her nutritional status. <ELECTRONICALLY SIGNED> By: Ricardo Sampson MD 08/26/17 0756 1359 [id number] Sampson MD /nt
--- NOTE | 2017-08-26 08:30 | NUR ---
PT TAKEN OFF HI DELVIS NC SATS AROUND 86%, PLACED ON 50% VENTIMASK. SATS REMAINED IN THE MID 80'S. PLACED ON BIPAP BY RT. MEPELEX ADDED TO BRIDGE OF PT'S NOSE TO HELP W/PRESSURE ULCER PREVENTION. PT FRUSTRATED THAT SHE HAD TO BE PLACED BACK ON BIPAP. SUPPORT AND REASSURANCE PROVIDED.
--- NOTE | 2017-08-26 10:06 | EKG ---
[place] [address] ELECTROCARDIOGRAM REPORT Name: FRANK MOLINA BRIAN Room: [address] ADM IN .R.#: [id number] Admission: 08/23/17 Attend Phys: Brittany Woods Discharge: Date of : 61 Report #: [id number] THIS REPORT FOR: //name// [facility] Test Date: 2017-08-25 Test Time: 22:33:22 Pat Name: FRANK MOLINA Department: Room: [address] Gender: F Gallery Director: UNKNOWN : 1965 Requested By: Yonathan Deutsch Order Number: [id number] Arben MD: Luis Easton Measurements Intervals [place] Rate: 76 P: 34 WA: 141 QRS: 33 QRSD: 90 T: 24 QT: 386 QTc: 435 Interpretive Statements Sinus rhythm Probable left atrial enlargement Abnormal inferior Q waves Compared to ECG 08/20/2017 13:07:38 no change Electronically Signed On 08-26-2017 10:05:53 VIDEO RECORDER MECHANIC by Luis Easton [email or web address] <ELECTRONICALLY SIGNED> By: Luis Easton MD, [facility] 08/26/17 1005 32 32 Luis Easton MD, [facility] /EPI
--- NOTE | 2017-08-26 13:47 | NUR ---
NO OT AT THIS TIME, PT ABLE TO COMPLETE ALL BADLS WITH SUPERVISION
[2017-08-26 14:17] LABS: BE 1.6 mmol/L (-2 to +3); HCO3 25.1 mmol/L (22.0-26.0); PO2 116.2 mmHg (75.0-100.0); pH 7.473 (7.340-7.450)
--- NOTE | 2017-08-26 18:26 | NUR ---
OUTCOME SUMMARY: PROGRESSING TOWARDS GOALS. REMAINS ON HI DELVIS NC AT 15 L W/SATS IN THE MID 90'S. ANTIBIOTICS CONTINUE. UP TO CHAIR X 2 THIS SHIFT. TOLERATED WELL. OT SIGNED OFF. ABLE TO MOVE RIGHT LOWER EXTREMITY WELL. PT'S BACK/RIGHT KNEE PAIN POORLY CONTROLLED W/PRN OXYCODONE AND SCHEDULED TRAMADOL AND IBUPROFEN. HIMS AWARE. PT CONTINUES TO HAVE NO RESERVE WHEN OXYGEN REMOVED, I.E, PT REMOVED HI DELVIS CANNULA TO BLOW HER NURSE EARLY THIS AM AND HER O2 SATURATION IMMEDIATELY DROPPED TO 78%. ON BIPAP FOR SEVERAL HOURS THIS AM AND ABLE TO GET GOOD REST. OVERALL PROGNOSIS: FAIR.
[2017-08-26 20:16] LABS: URINE BILIRUBIN NEGATIVE (Negative); URINE BLOOD TRACE (Negative); URINE CLARITY CLEAR; URINE COLOR YELLOW; URINE GLUCOSE-RANDOM NEGATIVE (Negative); URINE KETONES NEGATIVE (Negative); URINE LEUKOCYTES-REFLEX NEGATIVE (Negative); URINE NITRITE-REFLEX NEGATIVE (Negative); URINE PROTEIN NEGATIVE (Negative); URINE UROBILINOGEN 0.2 E.U./dl (0.2-1.0)
[2017-08-26 20:23] LABS: AMP/METHAMP Negative (Negative); BARBITURATES Negative (Negative); BENZODIAZEPINES Negative (Negative); COCAINE Negative (Negative); METHADONE Negative (Negative); OPIATES POSITIVE (Negative); PCP Negative (Negative); THC Negative (Negative)
[2017-08-27] VITALS (17 sets, daily range): BP systolic 109–177; BP diastolic 30–79
[2017-08-27 03:57] LABS: HEMATOCRIT 26.6 % (37.0-47.0); HEMOGLOBIN 8.7 gm/dL (12.0-15.0); MCH 27.5 pg (26.0-34.0); MCHC 32.7 g/dL (28.0-37.0); MCV 83.8 fL (80.0-100.0); MPV 7.3 fl. (7.2-11.1); RBC 3.18 mil/uL (4.20-5.00); RDW-CV 15.3 % (10.5-14.5); WBC 23.8 thou/uL (4.0-11.0)
[2017-08-27 04:28] LABS: ALBUMIN 2.4 g/dL (3.4-5.0); CREATININE 0.8 mg/dL (0.6-1.3); POTASSIUM 3.5 mmol/L (3.5-5.1); TOTAL BILIRUBIN 0.4 mg/dL (<0.1-1.0); TOTAL PROTEIN 5.8 g/dL (6.4-8.2)
[2017-08-27 05:37] LABS: BE 2.3 mmol/L (-2 to +3); HCO3 26.2 mmol/L (22.0-26.0); pH 7.456 (7.340-7.450)
[2017-08-27 05:43] LABS: PO2 57.6 mmHg (75.0-100.0)
--- NOTE | 2017-08-27 05:58 | NUR ---
ASSUMED PATIENT CARE AT 1900. PATIENT ALERT AND ORIENTED TIMES FOUR. VERY NEEDY. ABLE TO AMBULATE INDEPENDENTLY WITH O2 EXTENSION TO THE BEDSIDE COMMODE. PATIENT DID NOT REALLY SLEEP THROUGH THE NIGHT. ATTEMPTED BIPAP. PATIENT NON-COMPLIANT WITH USE. REMAINS ON HI-DELVIS AT 15L AT THIS TIME. NEW ABG'S DRAWN THIS AM. RN ASSESSMENTS COMPLETED DOCUMETED. FOUND OUT THAT HER SON IS IN THE HOSPITAL ALSO LAST EVENING. EXPRESSES MISGIVINGS ABOUT THE POSSIBILITY OF GOING HOME ON O2. EDUCATION DONE.
--- NOTE | 2017-08-27 07:00 | CON ---
[address] [address] CONSULTATION Name: FRANK MOLINA Room: [address] IN .R.#: [id number] Admission: 08/23/17 Attend Phys: Brittany Woods Discharge: Date of : 61 Report #: [id number] THIS REPORT FOR: //name// CC: Kevin Deutsch DATE OF SERVICE: 08/25/2017 CONSULT REQUESTED BY: Dr. Adame. INDICATION FOR CONSULTATION: Acute hypoxemic respiratory failure and pulmonary infiltrates. HISTORY OF PRESENT ILLNESS: This is a 52-year-old female, I just saw her a few days ago on the previous admission. Please review my previous consult as well for further details. In summary, the patient recently had surgery, now came in with hospital-acquired pneumonia. We were treating her on the second floor and the patient decided to sign AMA and leave. The patient went home, had a high-grade fever, was coughing and was bringing up sputum. She says she took 1 or 2 doses of Zithromax as well as Ceftin at home, but it does not appear that she is using them regularly. Therefore, she came back to the hospital. Since arrival, she has been on high flow oxygen. She has also mostly been on BiPAP; however, was taken off BiPAP this morning. She is barely maintaining O2 saturation on 15 liters of oxygen at this time. She does not have swelling of lower extremities. REVIEW OF SYSTEMS: Review of systems for 12 points is negative except as mentioned above. PAST MEDICAL HISTORY: COPD; recent knee surgery; she is on Eliquis, other than DVT prophylaxis, I do not know of any other reason for giving her Eliquis; chronic pain, takes narcotics long-term; last available echo shows a normal left ventricular ejection fraction and a pulmonary artery systolic of 35. ALLERGIES: QUESTIONABLE ALLERGY TO TYLENOL, BACTRIM AND TETRACYCLINE. CURRENT MEDICATIONS: Listed in [facility] and reviewed. HOME MEDICATIONS: See discussion above. PHYSICAL EXAMINATION: GENERAL: She is alert, awake and oriented, does appear to be short of breath. She is barely maintaining O2 saturation in the low 90s on 15 liters nasal cannula. She quickly desaturates when she talks. VITAL SIGNS: In the record[place] [address] CONSULTATION Name: FRANK MOLINA BRIAN Room: [address] IN [facility]#: [id number] Admission: 08/23/17 Attend Phys: Brittany Woods Discharge: Date of : 61 Report #: [id number] HEENT: Normocephalic, atraumatic. Pupils equal, reactive. There is no throat erythema. NECK: Does not show raised JVP. CHEST: Loud wheezing bilaterally. Breath sounds are bilaterally equal. HEART: Regular, no murmur. ABDOMEN: Soft and nontender. EXTREMITIES: Lower extremities show no edema, no calf tenderness. LABORATORY DATA: The patient's recent CT chest as well as chest x-rays, in fact CT chest repeated twice in [facility], reviewed. In summary, these show extensive infiltrates consistent with hospital-acquired pneumonia. There is no pulmonary embolism identified. The patient's lab work from the 6th in [facility], reviewed. There is a CBC from this morning, there are several other labs from this morning, which are pending. There is arterial blood gas repeated twice in [facility], reviewed. ASSESSMENT AND PLAN: 1. Acute hypoxemic respiratory failure. Recommend strictly keeping her on BiPAP whenever she sleeps. I recommend using BiPAP while awake p.r.n. 2. Severe bronchospasm. We will continue with nebulized bronchodilators. I increased her Solu-Medrol dose further. 3. Hospital-acquired pneumonia. The patient is currently on vancomycin as well as meropenem. She also is on Zithromax. I did not make any changes at this time. If she does well, then suggest for now continuing vancomycin, but if she does get better in the next day or two, we could consider discontinuing both meropenem as well as Zithromax and then switching her over back to Levaquin again. 4. Recent surgery/previous history of narcotic use, we will defer followup of her narcotics for now to the primary service. 5. Deep venous thrombosis prophylaxis, on Eliquis. The patient is critically ill at this time. Total time spent providing critical care to this patient today is 34 minutes. <ELECTRONICALLY SIGNED> By: Xiao Payton MD 08/27/17 0700 1125 [id number] Wells MD /nt
--- NOTE | 2017-08-27 08:21 | NUR ---
ASSUMED CARE OF PATIENT AFTER RECEIVING BEDSIDE REPORT. PATIENT HAS FREQUENT O2 SATURATION DROPS WITH ANY EXERTION. PATIENT REPORTS GETTING PNEUMONIA FREQUENTLY. PATIENT DID NOT TOLERATE BIPAP OVERNIGHT BUT IS WILLING TO ATTEMPT TO WEAR IT TODAY. COKE HANDLING SUPERVISOR IN PLACE, SINUS RHYTHM NOTED. BED ALARM ON. CALL LIGHT WITHIN REACH, USE REINFORCED. WILL CONTINUE TO MONITOR.
--- NOTE | 2017-08-27 15:48 | NUR ---
PATIENT NOTIFIED RN OF CHEST PAIN, INDIGESTION, AND NAUSEA. MILK OF MAGNESIA PROVIDED. EKG OBTAINED, SINUS RHYTHM WITH PVCS NOTED. TROPONIN AND D-DIMER DRAWN, BOTH ARE ELEVATED. DR. GARCIA NOTIFIED, NO ORDERS AT THIS TIME. NO CARDIAC CHANGES NOTED ON MONITOR. WILL CONTINUE TO MONITOR.
--- NOTE | 2017-08-27 18:20 | NUR ---
PATIENT RESTED OFF AND ON THROUGHOUT SHIFT. PATIENT WAS ABLE TO HAVE OXYGEN TITRATED DOWN TO 12L BUT THEN REQUIRED IT TO BE TITRATED BACK UP TO 15L. PATIENT COMPLAINED OF ABDOMINAL PAIN LATER IN THE AFTERNOON, PAIN WAS RELIEVED BY PROMETHAZINE AND OXYCODONE. PATIENT TOLERATED DIURESIS VERY WELL. CARDIOLOGY CONSULTED FOR ELEVATED TROPONIN. TROPONIN IS TRENDING DOWN AT THIS TIME. BEDSIDE REPORT TO BE GIVEN TO ONCOMING SHIFT.
[2017-08-28] VITALS (17 sets, daily range): BP systolic 108–165; BP diastolic 44–96
[2017-08-28 04:28] LABS: HEMATOCRIT 28.1 % (37.0-47.0); HEMOGLOBIN 9.1 gm/dL (12.0-15.0); MCH 27.3 pg (26.0-34.0); MCHC 32.5 g/dL (28.0-37.0); MCV 84.1 fL (80.0-100.0); MPV 7.4 fl. (7.2-11.1); NUCLEATED RBCS 0 /100WBC; PLATELET COUNT* 272 thou/uL (150-400); RBC 3.34 mil/uL (4.20-5.00); RDW-CV 14.9 % (10.5-14.5); WBC 33.3 thou/uL (4.0-11.0)
[2017-08-28 04:42] LABS: ALBUMIN 2.4 g/dL (3.4-5.0); CALCIUM 7.7 mg/dL (8.5-10.1); CREATININE 0.9 mg/dL (0.6-1.3); POTASSIUM 3.3 mmol/L (3.5-5.1); TOTAL BILIRUBIN 0.4 mg/dL (<0.1-1.0); TOTAL PROTEIN 5.8 g/dL (6.4-8.2)
[2017-08-28 06:12] LABS: ABSOLUTE LYMPHOCYTES 0.3 thou/uL (0.8-5.3); ABSOLUTE MONOCYTES 0.3 thou/uL (0.0-1.2); ABSOLUTE NEUTROPHILS 32.6 thou/uL (1.6-8.1); HYPOCHROMASIA 1+; PLATELET ESTIMATE ADEQUATE
--- NOTE | 2017-08-28 06:57 | NUR ---
ASSUMED PATIENT CARE AT 1900. PATIENT ALERT AND ORIENTED TIMES FOUR. MINOR COMPLAINTS OF PAIN. PATIENT ALWAYS RATES PAIN AT AN 8. NEW IV STARTED. AMUSEMENT CENTRE MANAGER COMPLETED DOCUMENTED. WORE BIPAP FOR APPROX ONE HOUR. BACK ON 15L HI-DELVIS. REQUESTED "MEDICAL PASS TO GO HOME FOR A LITTLE WHILE" EDUCATION DONE.
--- NOTE | 2017-08-28 07:55 | NUR ---
ASSUMED CARE OF PATIENT AFTER RECEIVING BEDSIDE REPORT. ASSESSMENT COMPLETED, VSS. PATIENT RESTING COMFORTABLY IN BED. PATIENT DENIES CHEST PAIN AND NAUSEA TODAY. PATIENT VOICES CONCERN ABOUT LABS. DOCTOR PODIATRIC MEDICINE IN PLACE, SINUS RHYTHM WITH PVCS NOTED. BED ALARM ON. CALL LIGHT WITHIN REACH, USE REINFORCED. WILL CONTINUE TO MONITOR.
[2017-08-28 08:24] LABS: BE 5.6 mmol/L (-2 to +3); HCO3 29.4 mmol/L (22.0-26.0); PCO2 39.9 mmHg (35.0-45.0); pH 7.485 (7.340-7.450)
[2017-08-28 08:26] LABS: PO2 56.5 mmHg (75.0-100.0)
[2017-08-28 12:16] LABS: URINE BILIRUBIN NEGATIVE (Negative); URINE BLOOD NEGATIVE (Negative); URINE CLARITY CLEAR; URINE COLOR YELLOW; URINE GLUCOSE-RANDOM NEGATIVE (Negative); URINE KETONES NEGATIVE (Negative); URINE LEUKOCYTES NEGATIVE (Negative); URINE NITRITE NEGATIVE (Negative); URINE PROTEIN NEGATIVE (Negative); URINE UROBILINOGEN 0.2 E.U./dl (0.2-1.0)
--- NOTE | 2017-08-28 16:39 | EKG ---
[place] [address] ELECTROCARDIOGRAM REPORT Name: TRACYFRANK Room: [address] ADM IN M.R.#: [id number] Admission: 08/23/17 Attend Phys: Brittany Woods Discharge: Date of : 61 Report #: [id number] THIS REPORT FOR: //name// [facility] Test Date: 2017-08-27 Test Time: 13:44:07 Pat Name: FRANK MOLINA Department: Room: [address] Gender: F Litigation Associate: [id number] : 1965 Requested By: Esther Espinal Order Number: [id number] Reading MD: Luis Easton Measurements Intervals [place] Rate: 95 P: 50 WA: 154 QRS: 50 QRSD: 95 T: 27 QT: 358 QTc: 450 Interpretive Statements Sinus rhythm Paired ventricular premature complexes LAE, consider biatrial enlargement Left ventricular hypertrophy Abnormal inferior Q waves Compared to ECG 08/25/2017 22:33:22 Ventricular premature complex(es) now present Left ventricular hypertrophy now present Electronically Signed On 08-28-2017 16:39:37 CDT by Luis Easton [email or web address] <ELECTRONICALLY SIGNED> By: Luis Easton MD, [facility] 08/28/17 1639 1344 1344 Luis Easton MD, [facility] /EPI
--- NOTE | 2017-08-28 16:56 | EKG ---
[place] [address] ELECTROCARDIOGRAM REPORT Name: FRANK MOLINA Room: [address] ADM IN .R.#: [id number] Admission: 08/23/17 Attend Phys: Brittany Woods Discharge: Date of : 61 Report #: [id number] THIS REPORT FOR: //name// [facility] Test Date: 2017-08-28 Test Time: 07:59:54 Pat Name: FRANK MOLINA Department: Room: [address] Gender: F Maintenance Worker Swimming Pool: RENE : 1965 Requested By: Luis Easton Order Number: [id number] Arben MD: Luis Easton Measurements Intervals [place] Rate: 84 P: 44 [place]: 154 QRS: 41 QRSD: 94 T: 20 QT: 380 QTc: 450 Interpretive Statements Sinus rhythm Multiple ventricular premature complexes Probable left atrial enlargement Abnormal inferior Q waves Electronically Signed On 08-28-2017 16:55:56 CDT by Luis Easton [email or web address] <ELECTRONICALLY SIGNED> By: Luis Easton MD, [facility] 08/28/17 1655 0759 0759 Luis Easton MD, [facility] /EPI
--- NOTE | 2017-08-28 17:32 | NUR ---
PATIENT STRUGGLED WITH OXYGENATION THIS SHIFT. PATIENT FREQUENTLY REMINDED TO WEAR OXYGEN. PATIENT PARTICIPATED WITH PT TODAY. PATIENT VERY TEARFUL AND FREQUENTLY ASKING FOR PAIN MEDICATION. PATIENT CONTINUES TO HAVE COMPLAINTS OF ABDOMINAL PAIN. CARAFATE AND SIMETHICONE STARTED. RN EDUCATED PATIENT ON NUTRITION AND HEALTHY FOOD CHOICES TO AID IN NOT HAVING NAUSEA. PATIENT REFUSED TO WEAR BIPAP THROUGHOUT SHIFT. BEDSIDE REPORT TO BE GIVEN TO ONCOMING SHIFT.
--- NOTE | 2017-08-28 21:10 | NUR ---
ASSUMED PATIENT CARE AT 1900. PATIENT STATED "MY STOMACH HURTS". GAVE PATIENT MEDICATION TO HELP AND PAIN MEDICATION. PATIENT CALLED MAINTENANCE TECHNICIAN 2ND SHIFT REQUESTING MORE PAIN MEDICATION. RN ATTEMPTED TO EDUCATE PATIENT ABOUT HER DIET CHOICES IE FAST FOOD THAT FAMILY BROUGHT, DONUGHTS,ETC. WHEN PLAIN CLOTHES POLICE OFFICER IN THE ROOM, PATIENT DENIED EATING ANYTHING. STATING "NOTHING LOOKS GOOD SO I AM NOT EATING ANYTHING"
--- NOTE | 2017-08-28 22:52 | NUR ---
SPOKE TO PATIENTS ,MONTY, ON THE PHONE WHEN HE CALLED THE UNIT. HE EXPRESSED CONCERN THAT HE WAS HEARING FROM FAMILY MEMBERS THAT PATIENT WAS CALLING OTHER FAMILY MEMBERS TO LEAVE THE HOSPITAL AMA. TOLD THAT RN WOULD SPEAK TO PATIENT AND EXPRESS HIS CONCERN. PATIENT VEHEMENTLY DENIED CALLING AN FAMILY MEMBERS AND SUBSEUENTLY COULD HEAR PATIENT ON THE PHONE YELLING AT SOMEONE ABOUT CALLING UP HERE. STATES THAT "THE MORPHINE DID NOT HELP AT ALL, WHEN CAN I GET MORE PAIN MEDICATION".
[2017-08-29] VITALS (16 sets, daily range): BP systolic 114–166; BP diastolic 49–84
[2017-08-29 05:31] LABS: HEMATOCRIT 25.9 % (37.0-47.0); HEMOGLOBIN 8.4 gm/dL (12.0-15.0); MCH 27.4 pg (26.0-34.0); MCHC 32.5 g/dL (28.0-37.0); MCV 84.3 fL (80.0-100.0); MPV 7.3 fl. (7.2-11.1); RBC 3.08 mil/uL (4.20-5.00); RDW-CV 15.1 % (10.5-14.5); WBC 28.7 thou/uL (4.0-11.0)
[2017-08-29 05:48] LABS: ANION GAP 6 mmol/L (7-16); BUN 22 mg/dL (7-18); CALCIUM 7.8 mg/dL (8.5-10.1); CHLORIDE 99 mmol/L (98-107); CHOLESTEROL 131 mg/dL (<200); CO2 34 mmol/L (21-32); CREATININE 0.7 mg/dL (0.6-1.3); GLUCOSE 118 mg/dL (70-99); HDL CHOLESTEROL 47 mg/dL (>40); LDL CHOLESTEROL 71 mg/dL (<100); MAGNESIUM 2.2 mg/dL (1.8-2.4); POTASSIUM 3.7 mmol/L (3.5-5.1); SODIUM 139 mmol/L (136-145); TC:HDL 2.8 Ratio (Not establshd); TRIGLYCERIDE 69 mg/dL (<150); VLDL 14 mg/dL (<40)
[2017-08-29 05:49] LABS: SERUM ASSESSMENT Clear
--- NOTE | 2017-08-29 07:30 | NUR ---
patient non-compliant with any breathing therapies or NPO status. Upon arriving in patients room this Am to give AM medications. Patient was standing at bedside. When asked what she was doing, patient stated "getting my stuff". She was holding her non-rebreather in her hand and did not have it fastened around her head. Noted patients ice-tea cup sitting at bedside and inquired as to why she was drinking that when she knew she was NPO status. Patient stated, "I only sipped on it all night". Patient did not have this at bedside the rest of the night and RN only gave sips of water with medication. Patient stated "I already had my test so what does it matter" RN responded, "We discussed this last evening, the order is there in case the DR wants to do further testing in the AM". Patient says "Don't yell at me I am not your child". Rn did not raise her voice. Patient then got on her phone and called her daughter, stated " I am leaving here now, this bitch just yelled at me about drinking my tea all night" Patient then called Nursing primer supervisor. Patient has been educated about her resiratory status and refuses to be intubated. life skills instructor completed as documented.
--- NOTE | 2017-08-29 08:26 | NUR ---
ASSUMED CARE OF PATIENT AFTER RECEIVING BEDSIDE REPORT. PATIENT REQUESTING TO BE TRANSFERRED TO [facility]. DR. CUEVAS DISCUSSED AT BEDSIDE. PATIENT REQUESTED TO BE MADE DNI. PATIENT DOWNGRADED TO TELEMETRY. PATIENT NOW ON NONREBREATHER MASK AT 15L. BREATH SOUNDS ARE SLIGHTLY WORSE THAN YESTERDAY. CHART CLERK IN PLACE, SINUS RHYTHM NOTED. CALL LIGHT WITHIN REACH, USE REINFORCED. WILL CONTINUE TO MONITOR.
--- NOTE | 2017-08-29 08:26 | CON ---
[address] [address] CONSULTATION Name: FRANK MOLINA Room: [address] IN M.R.#: [id number] Admission: 08/23/17 Attend Phys: Brittany Woods Discharge: Date of : 61 Report #: [id number] THIS REPORT FOR: //name// CC: RYAN Deutsch DATE OF SERVICE: 08/28/2017 CARDIOLOGY CONSULTATION PRIMARY CARE PHYSICIAN: Dr. Ryan Andino. HISTORY OF THE PRESENT ILLNESS: The patient is a 52-year-old single white female who I was asked to see in the hospital today after she complained of chest pain. The patient has no previous history of heart disease. She actually underwent a heart catheterization here at [facility] in 2005 after she complained of chest pain, was found to have normal coronary arteries and normal left ventricular function. She has a history of smoking and COPD. She is on home oxygen. She has been followed by Pulmonary in the past. The patient just underwent total knee replacement here at [facility] on August 15. She was discharged home, but after only being home a couple of days, she complained of shortness of breath and knee pain. She came back to the hospital and was admitted. She was again discharged only to be readmitted the day later on 08/23/2017 again complaining of shortness of breath, chest tightness. I was asked to see her for cardiac evaluation. The patient states she has intermittent chest heaviness. It is not related to exertion or meals. There is no radiation of the pain. It does not make her diaphoretic and nauseated. She has been short of breath and had a cough. She has had no significant edema. She notes her heart rate has been increasing, but she has had no syncope. PAST MEDICAL HISTORY: Otherwise significant for tonsillectomy, hysterectomy, hypertension, diabetes. MEDICATIONS: Consists of DuoNeb treatment. She has been on Eliquis, prednisone, Levaquin, naproxen, nortriptyline, losartan eye drops. ALLERGIES: She has intolerance to SULFA DRUGS, TETRACYCLINE. FAMILY HISTORY: Mother and father have heart disease. SOCIAL HISTORY: She is . Apparently, her now is in hospice because of cirrhosis. They live in [place]. She is on disability. Smokes half pack of cigarettes a day. No alcohol abuse. REVIEW OF SYSTEMS: She has had no history of stroke. [place] [address] CONSULTATION Name: FRANK MOLINA Room: [address] IN [facility]#: [id number] Admission: 08/23/17 Attend Phys: Brittany Woods Discharge: Date of : 61 Report #: [id number] has been diagnosed with hepatitis C in the past. No peptic ulcer disease, no kidney disease. She has had a skin cancer removed in the past. She has a history of anxiety disorder and is followed by Psychiatry. PHYSICAL EXAMINATION: GENERAL: Revealed a middle-aged female, appeared in no acute distress. VITAL SIGNS: Blood pressure 140/70, pulse 80, she is afebrile. HEENT: She is anicteric. Conjunctivae pink. Mucous membranes moist. NECK: Veins nondistended. No carotid bruits. Neck supple. CHEST: Clear to auscultation. CARDIAC: Regular rate and rhythm. No rub or murmur. ABDOMEN: Soft, nontender. EXTREMITIES: She has had no edema. Dorsalis pedis pulse 2+ bilaterally. SKIN: Warm, dry. NEUROLOGIC: Nonfocal. LYMPH: No adenopathy. MUSCULOSKELETAL: No joint effusion. DIAGNOSTIC DATA: Her ECG on admission last week showed a sinus rhythm. There is no ST or T-wave change noted. The patient had ECG yesterday morning again showed sinus rhythm, PVC, no ST or T-wave change. ECG yesterday afternoon showed sinus rhythm, PVC, no ST segment change. Her workup, she had an echocardiogram done last month here at [facility] that showed normal left ventricular function, mild tricuspid insufficiency, mild pulmonary hypertension. Her chest x-ray from today shows diffuse interstitial infiltrates. CT scan of the chest using a PE protocol last week showed mild bilateral interstitial infiltrates, possible pneumonia. LABORATORY DATA: Sodium 138, BUN 18, creatinine 0.9, potassium 3.3. Liver function studies are normal. Albumin 2.4. Her troponins yesterday it is 0.39, today it is 0.3. Her white blood cell count is 33,000; hemoglobin 9. IMPRESSION AND RECOMMENDATIONS: 1. Borderline troponin. No evidence of acute myocardial infarction. Chest pain atypical for angina. Suspect noncardiac. Recommend no cardiac evaluation at this time. Echocardiogram last month showed normal left ventricular function. 2. Bilateral pulmonary infiltrates. Suspect pneumonia. Possible diastolic heart failure. 3. Hypertension. The patient has been on an ARB in the past. 4. Glucose intolerance. 5. Tobacco abuse. 6. Chronic obstructive pulmonary disease. 7. History of hepatitis C. [address] [address] CONSULTATION Name: FRANK MOLINA BRIAN Room: [address] IN .R.#: [id number] Admission: 08/23/17 Attend Phys: Brittany Woods Discharge: Date of : 61 Report #: [id number] 8. Anemia. 9. History of anxiety disorder. <ELECTRONICALLY SIGNED> By: Luis Easton MD, [facility] 08/29/17 0826 1117 2028Dabrenton Easton MD, [facility] /nt
--- NOTE | 2017-08-29 18:05 | NUR ---
PATIENT CONTINUED TO VOICE SEVERAL COMPLAINTS AND DEMANDED TO BE MOVED UP TO TELE. FOOD CROPS FARM HAND SPOKE WITH PATIENT AND EXPLAINED SAFETY CONCERNS PATIENT CONTINUES TO TAKE OFF OXYGEN SUPPORT. EDUCATION AGAIN PROVIDED ABOUT THE IMPORTANCE OF COMPLIANCE WITH TREATMENTS AND LASIX. PATIENT STATES UNDERSTANDING BUT IS NOT CONSISTENT WITH COMPLIANCE. PATIENT SLEPT OFF AND ON THROUGHOUT MOST OF THE SHIFT. PATIENT PARTICIPATED WITH PHYSICAL THERAPY WITH SOME RESPIRATORY DIFFICULTY. BEDSIDE REPORT TO BE GIVEN TO ONCOMING SHIFT.
--- NOTE | 2017-08-29 18:10 | EKG ---
[place] [address] ELECTROCARDIOGRAM REPORT Name: TRACYFRANK BRIAN Room: [address] ADM IN M.R.#: [id number] Admission: 08/23/17 Attend Phys: Brittany Woods Discharge: Date of : 61 Report #: [id number] THIS REPORT FOR: //name// [facility] Test Date: 2017-08-29 Test Time: 08:48:57 Pat Name: FRANK MOLINA Department: Room: [address] Gender: F Dewaxer: 25 : 1965 Requested By: Luis Easton Order Number: [id number] Arben OWENS: Ryan Olivia Measurements Intervals [place] Rate: 83 P: 55 AK: 147 QRS: 57 QRSD: 97 T: 35 QT: 378 QTc: 445 Interpretive Statements Sinus rhythm Probable left atrial enlargement Abnormal inferior Q waves Compared to ECG 08/28/2017 07:59:54 Ventricular premature complex(es) no longer present Electronically Signed On 08-29-2017 18:10:34 CDT by Ryan Olivia [email or web address] <ELECTRONICALLY SIGNED> By: Ryan Olivia MD, [facility] 08/29/17 1810 0848 0848 Ryan Olivia MD, [facility] /EPI
[2017-08-30] VITALS (8 sets, daily range): BP systolic 109–162; BP diastolic 62–85
[2017-08-30 02:07] LABS: MYCOPLASMA PNEUMONIA IgG 451 U/mL (0-99); MYCOPLASMA PNEUMONIA IgM 1284 U/mL (0-769)
[2017-08-30 05:04] LABS: HEMATOCRIT 27.4 % (37.0-47.0); HEMOGLOBIN 8.9 gm/dL (12.0-15.0); MCH 27.2 pg (26.0-34.0); MCHC 32.6 g/dL (28.0-37.0); MCV 83.4 fL (80.0-100.0); MPV 7.1 fl. (7.2-11.1); RBC 3.28 mil/uL (4.20-5.00); RDW-CV 15.6 % (10.5-14.5); WBC 28.3 thou/uL (4.0-11.0)
[2017-08-30 05:28] LABS: CALCIUM 7.7 mg/dL (8.5-10.1); CREATININE 0.8 mg/dL (0.6-1.3); POTASSIUM 3.6 mmol/L (3.5-5.1)
--- NOTE | 2017-08-30 10:28 | NUR ---
PATIENT TRANSFERED TO RM 218. REPORT GIVEN TO ERICKA.
--- NOTE | 2017-08-30 15:14 | NUR ---
PATIENT RECIEVED FROM ICU PER BED ON BIPAP THIS AM. PATIENT WAS TAKEN OFF BIPAP PER HER REQUEST AND PLACED ON O2 AT 15 LITERS HIGH FLOW AND 100% NRB. PATIENT'S O2 SATS WERE 75 TO 85%. PATIENT GIVEN IV LASIX PER ORDER. REPOSITIONED. SATS NOW 90 TO 915 ON 100% NRB. PATIENT PLACED ON TELE MONITOR. ORIENTED TO ROOM AND CALL LIGHT. PATIENT WAS MEDICATED FOR ANXIETY AND PAIN. PATIENT IS RESTING AT THIS TIME. TELE SHOWS SR.
[2017-08-31] VITALS (21 sets, daily range): BP systolic 79–159; BP diastolic 39–90
[2017-08-31 05:16] LABS: HEMATOCRIT 29.6 % (37.0-47.0); HEMOGLOBIN 9.6 gm/dL (12.0-15.0); MCH 27.3 pg (26.0-34.0); MCHC 32.5 g/dL (28.0-37.0); MPV 7.8 fl. (7.2-11.1); RBC 3.53 mil/uL (4.20-5.00); RDW-CV 15.4 % (10.5-14.5); WBC 31.9 thou/uL (4.0-11.0)
[2017-08-31 05:32] LABS: CALCIUM 8.2 mg/dL (8.5-10.1); CREATININE 0.8 mg/dL (0.6-1.3); MAGNESIUM 2.3 mg/dL (1.8-2.4); POTASSIUM 3.7 mmol/L (3.5-5.1)
--- NOTE | 2017-08-31 08:41 | NUR ---
PT IS ABLE TO COMMUNICATE HER NEEDS TO STAFF EFFECTIVELY. CURRENT PAIN MEDICATION REGIMEN HAS BEEN ADEQUATE FOR CONTROLLING HER PAIN UP TO THIS TIME. SHE WORE HER BIPAP DURING MOST OF THE NIGHT, HOWEVER, SHE DID TAKE IT OFF SEVERAL TIMES BECAUSE SHE NEEDED ONE THING OR ANOTHER BUT DID NOT TELL STAFF SHE WAS REMOVING IT. SHE NEEDS AN O2 SOURCE AT ALL TIMES BECAUSE SHE DESATS VERY QUICKLY WITHOUT IT. SHE HAS THUS FAR REFUSED INTUBATION.
--- NOTE | 2017-08-31 09:37 | NUR ---
CONTINUE TO FOLLOW, DISCUSSED WITH NURSE. PT ON BIPAP. MET WITH PT, DISCUSS DPOA WITH HER, SHE STATED SHE WOULD WANT HER SPOUSE OR DTR TO MAKE HER DECISIONS. PARTIALLY FILLED OUT DPOA AT BEDSIDE, PT WANTS TO DISCUSS WITH HER SPOUSE AND DTR WHEN THEY GET HERE. WILL FOLLOW
--- NOTE | 2017-08-31 10:35 | NUR ---
PT IS A 52 Y/O FEMALE TRANSFERRED DOWN FROM [facility] FOR INCREASING RESPIRATORY FAILURE. PT DECIDED ALONG W/FAMILY AND DR. CLEMENT THAT SHE WISHED TO BE A FULL CODE. AFTER ARRIVAL TO ICU, AND PLAN OF CARE EXPLAINED TO PT, PT STATED, "I DON'T WANT THE TUBE." FAMILY TEARFUL AT BEDSIDE ATTEMPTING TO EXPLAIN TO PT THE NECESSITY OF INTUBATION/VENTILATION. DR. CLEMENT PAGED PER PT REQUEST. CM PAGED WELL FAMILY WISHING TO RE-DO PT'S POWER OF VP DIRECTOR OF CREATIVE STRATEGY PAPERWORK. DR. CLEMENT IN W/PT. PT THEN AGREED TO INTUBATION. PT'S SATS UPON ARRIVAL TO ICU ON BIPAP W/FIO2 AT 100% WERE AT 87%. PT INTUBATED AT 1055 BY ANESTHESIA. A/C-12, TV-550, PEEP-5, AND FIO2-100%. FENTANYL AND VERSED GTTS STARTED SOON AFTER PT INTUBATED. GOALS THIS SHIFT ARE TO MONITOR/MAINTAIN OXYGENATION, REST/COMFORT, EXPLAIN POC TO FAMILY, AND ANTIBIOTICS.
[2017-08-31 13:43] LABS: BE 9.8 mmol/L (-2 to +3); HCO3 35.4 mmol/L (22.0-26.0); PO2 72.4 mmHg (75.0-100.0); pH 7.425 (7.340-7.450)
[2017-08-31 13:44] LABS: PCO2 55.2 mmHg (35.0-45.0)
--- NOTE | 2017-08-31 15:42 | NUR ---
CONSULTED FOR DIFFICULTY IV ACCESS. AFTER REVIEW OF CHART AND DISCUSSION WITH PRIMARY NURSE. MIDLINE WAS CHOSEN. LEFT UPPER ARM ASSESSED WITH ULTRASOUND. LEFT BASILIC IDENTIFIED AND NOTED TO BE WIDLEY PATENT. SINGLE LUMAN POWER PICC PLACED PER POLICY. LINE TRIMMED TO 13CM AND ADVANCED TO 0CM EXTERNAL. GOOD BRISK BLOOD RETURN NOTED AND FLUSHED WITH EASE. LINE SECURED AND RELEASED FOR USE. PRIMARY NURSE NITIN PERAZA RN AWARE.
--- NOTE | 2017-08-31 16:48 | NUR ---
UPDATED PT'S DAUGHTER, REYES, THAT PT WILL BE STARTED ON BLOOD PRESSURE MEDS D/T SEDATION MEDS.
[2017-09-01] VITALS (19 sets, daily range): BP systolic 79–167; BP diastolic 36–82
[2017-09-01 06:00] LABS: BE 6.8 mmol/L (-2 to +3); PCO2 49.5 mmHg (35.0-45.0); pH 7.428 (7.340-7.450)
[2017-09-01 06:01] LABS: PO2 51.3 mmHg (75.0-100.0)
--- NOTE | 2017-09-01 07:10 | NUR ---
POOR PROGRESSION TOWARDS GOALS, RESTLESS, ANXIOUS, ABDOMINAL MUSCULE ANTOINETTE NOTED WITH RESPIRATIONS, FENTANYL GTT MAXED DOSE 150MCG/HOUR VIA INFUSION PUMP AND VERSED GTT MAXED 10MG/HOUR VIA INFUSION PUMP, SAO2 DECLINING 86 PERCENT WITH TACTILE STIMULI, FIO2 100%, STAT ABG OBTAINED RESULTS CALLED TO DR CHENG COFFEE WEIGHER FOR DR SANCHEZ, NEW ORDERS OBTAINED, CALLED RT TO COMMUNICATE VENTILATOR SETTING CHANGES, WILL UPDATE ON-[id number] RN, HYPOTENSIVE THIS AM, LEVOPHED GTT INITIATED PER ORDER AT 0607, REMAINS AT 3MCG AT THIS TIME VIA INFUSION PUMP, MINIMAL SECRETIONS NOTED VIA ET INLINE AND ORAL SUCTIONING. SAO2 DESATURATION WITH GOOD PLETH NOTED WITH POSITIONING ON EITHER SIDE OF BODY. EITHER SIDES.
[2017-09-01 07:11] LABS: HEMATOCRIT 24.1 % (37.0-47.0); HEMOGLOBIN 7.7 gm/dL (12.0-15.0); MCH 27.2 pg (26.0-34.0); MCV 84.9 fL (80.0-100.0); MPV 7.7 fl. (7.2-11.1); NUCLEATED RBCS 0 /100WBC; RBC 2.83 mil/uL (4.20-5.00); RDW-CV 15.6 % (10.5-14.5); WBC 28.3 thou/uL (4.0-11.0)
[2017-09-01 07:13] LABS: PLATELET COUNT* 183 thou/uL (150-400)
[2017-09-01 07:24] LABS: ALBUMIN 2.3 g/dL (3.4-5.0); CREATININE 0.8 mg/dL (0.6-1.3); MAGNESIUM 2.1 mg/dL (1.8-2.4); POTASSIUM 4.1 mmol/L (3.5-5.1); TOTAL BILIRUBIN 0.5 mg/dL (<0.1-1.0); TOTAL PROTEIN 5.2 g/dL (6.4-8.2)
[2017-09-01 07:51] LABS: ABSOLUTE LYMPHOCYTES 2.3 thou/uL (0.8-5.3); PLATELET ESTIMATE ADEQUATE
[2017-09-01 07:52] LABS: ANISOCYTOSIS 1+; POIKILOCYTOSIS 1+; POLYCHROMASIA 1+
--- NOTE | 2017-09-01 09:00 | NUR ---
ASSESSMENT AND VS OBTAINED, SEE CHARTING. SWITCHBOARD OPERATOR ASSISTANT ONE AND TRACING SR. BP HAVE BEEN STABLE. THROUGH OUT THE NIGHT KEEPING THE O2 AT UP ABOVE 85. 0840 DR ANDERSON INCREASED THE PEEP TO 10 AND ADDED PROPOFOL TO PT SEDATION. PT WILL BE TRANSFERRED OUT TO . FAMILY IS AWARE.
[2017-09-01 09:02] LABS: HCO3 32.4 mmol/L (22.0-26.0); PCO2 50.6 mmHg (35.0-45.0); PO2 61.3 mmHg (75.0-100.0); pH 7.424 (7.340-7.450)
--- NOTE | 2017-09-01 09:45 | NUR ---
NOTIFIED BY DR. CLEMENT THAT PT NEEDS TO BE TRANSFERRED TO [facility], DR. ANDERSON WILL TALK WITH THE PHYSICIAN AT [facility] TRANSFER TEAM [phone] TO INITIATE TRANSFER.
--- NOTE | 2017-09-01 10:50 | NUR ---
ROOM ASSIGNMENT FOR IS [id number]. GAVE REPORT TO ANI.
--- NOTE | 2017-09-01 12:21 | NUR ---
L[facility]IGHT HERE TO TAKE PT. PT WAS TO UNSTABLE TO GO BY GROUND
[2017-09-02] VITALS: BP 102/57
[2017-09-02 00:30] VITALS: BP 107/58
== END 2017-09-01 12:51 | disposition short-term general hospital (02) | DRG 871 ==
LOC: M.ERS 01:04 → M.TBA-ER 01:31 → M.3W 01:31 → M.ICU 08-25 04:29 → M.2W 08-30 10:07 → M.ICU 08-31 10:35
PROVIDERS: Emergency Medicine; Internal Medicine; Internal Medicine Pulmonary Disease; ADMIT Internal Medicine
PROC: 5A09357 Assistance with Respiratory Ventilation, Less than 24 Consecutive Hours, Continuous Positive Airway Pressure (ICD-10-PCS; principal; 2017-08-25)
PROC: 5A09357 Assistance with Respiratory Ventilation, Less than 24 Consecutive Hours, Continuous Positive Airway Pressure (ICD-10-PCS; 2017-08-26)
PROC: 5A09357 Assistance with Respiratory Ventilation, Less than 24 Consecutive Hours, Continuous Positive Airway Pressure (ICD-10-PCS; 2017-08-29)
PROC: 5A09357 Assistance with Respiratory Ventilation, Less than 24 Consecutive Hours, Continuous Positive Airway Pressure (ICD-10-PCS; 2017-08-30)
PROC: 5A1935Z Respiratory Ventilation, Less than 24 Consecutive Hours (ICD-10-PCS; 2017-08-31)
PROC: 0BH17EZ Insertion of Endotracheal Airway into Trachea, Via Natural or Artificial Opening (ICD-10-PCS; 2017-08-31)
PROC: 05HB33Z Insertion of Infusion Device into Right Basilic Vein, Percutaneous Approach (ICD-10-PCS; 2017-08-31)
DX: A41.9 Sepsis, unspecified organism (principal); J96.01 Acute respiratory failure with hypoxia; J15.7 Pneumonia due to Mycoplasma pneumoniae; F11.20 Opioid dependence, uncomplicated; J44.0 Chronic obstructive pulmonary disease with (acute) lower respiratory infection; G89.29 Other chronic pain; Y95 Nosocomial condition; I10 Essential (primary) hypertension; M19.90 Unspecified osteoarthritis, unspecified site; K21.9 Gastro-esophageal reflux disease without esophagitis; F17.210 Nicotine dependence, cigarettes, uncomplicated; E74.39 Other disorders of intestinal carbohydrate absorption; D64.9 Anemia, unspecified; F41.9 Anxiety disorder, unspecified; K58.9 Irritable bowel syndrome, unspecified; Z96.651 Presence of right artificial knee joint; D72.829 Elevated white blood cell count, unspecified; Z88.1 Allergy status to other antibiotic agents; Z88.8 Allergy status to other drugs, medicaments and biological substances; Z86.19 Personal history of other infectious and parasitic diseases; Z90.710 Acquired absence of both cervix and uterus; Z88.2 Allergy status to sulfonamides; Z82.49 Family history of ischemic heart disease and other diseases of the circulatory system; Z91.14 Patient's other noncompliance with medication regimen; Z65.8 Other specified problems related to psychosocial circumstances; Z79.899 Other long term (current) drug therapy